=== PATIENT | male | born 1935 | race Caucasian/White ===

== ENCOUNTER → 2017-05-12 | Outpatient (CLI) | payer MEDICARE ==
[~2017-05-12] VITALS: Ht 182.9 cm; Wt 93.0 kg
[~2017-05-12] MED LIST: ALPH1TAB8 PO; ASP81TEC PO; ATEN25TA PO; BEANO PO; CALC-250 PO; CATHETER FLUSH 10 ML SYR IV PRN; DOCU100C37 PO; DOXY100C2 PO; EZET1TAB29 PO; EZET1TAB31 PO; FINA5TAB6 PO; FOSI10TA3 PO; GLIM1TAB PO; HYDR-3730 PO; IBUP-2055 PO; L.AC1CAP6 PO; LEVO500T2 PO; LEVO500T80 PO; OMEG1600 PO; OMEP20CA12 PO; OMEP20TA2 PO; REGADENOSON 0.4 MG/5 ML SYR (LEXISCAN) IV ONE; SENN-75 PO; [UNRECOGNIZED DRUG - OTHER] PO
[2017-05-12 08:08] VITALS: BP 156/88
[2017-05-12 08:18] VITALS: BP 199/65
--- NOTE | 2017-05-12 18:19 | STRESS TEST ---
DATE OF SERVICE: 05/12/2017 RESTING AND POST REGADENOSON TECHNETIUM-99M TETROFOSMIN SPECT CT IMAGING ORDERING PHYSICIAN: Dr. Zepeda. PRIMARY PHYSICIAN: Dr. Zepeda. CLINICAL DIAGNOSES: Chest pain, coronary artery disease. Baseline images were carried out after injection of 10.77 mCi of technetium-99m Tetrofosmin for stress imaging. This was followed by 0.4 mg regadenoson and 32 mCi of technetium-99m Tetrofosmin for stress imaging. The electrocardiogram showed sinus rhythm at baseline and there was subtle nonspecific ST abnormality. The electrocardiogram did not change significantly with the regadenoson infusion. The patient reported mild shortness of breath following regadenoson infusion. The electrocardiographic portion of the study is reported separately by Dr. Zepeda. Review of images at rest and following stress indicates a small transient basal inferolateral perfusion defect. Gated images show normal global systolic function with normal regional wall motion. Left ventricular ejection fraction is calculated to be 67%. Left ventricular end diastolic volume is 57 mL. TID is absent (1.1). CONCLUSIONS: 1. The study is indicative of a small amount of basal inferolateral ischemia. 2. Normal regional wall motion. 3. Normal global left ventricular systolic function with a calculated ejection fraction of 67%. 4. Normal left ventricular cavity size. Job ID: [id number] DocumentID: [id number] Dictated Date: 05/12/2017 13:03:57 Top Loader Date: 05/12/2017 18:18:17 Dictated By: PEDRO PABLO DEL ANGEL MD, MA, FACP, FACC,
== END ==
LOC: CARD 06:44
PROVIDERS: ATTEND Internal Medicine
DX: I25.10 Atherosclerotic heart disease of native coronary artery without angina pectoris (principal); R07.9 Chest pain, unspecified
CPT/HCPCS: 78452; 93017

== ENCOUNTER 2017-09-18 09:31 | Emergency (ER) | payer MEDICARE ==
[~2017-09-18] VITALS: Ht 182.9 cm; Wt 97.5 kg
[~2017-09-18 09:31] MED LIST changes: -CATHETER FLUSH 10 ML SYR IV PRN; -REGADENOSON 0.4 MG/5 ML SYR (LEXISCAN) IV ONE
--- NOTE | 2017-09-18 11:46 | Diagnostic Imaging Report ---
INDICATION: Constipation. Time of exam: 10:45 AM No free air is identified. There are surgical clips in the right upper quadrant. There does appear to be moderate stool throughout the colon suggesting constipation. There are surgical clips midline in the pelvis. Small bowel is not appreciably dilated. No pathologic calcifications are seen. IMPRESSION: Moderate stool throughout the abdomen suggestive of constipation. Dictated by: Dictated on workstation # [id number]
--- NOTE | 2017-09-18 12:00 | ED GI ---
General Chief Complaint: Abdominal/GI Problems Stated Complaint: BLOCKAGE IN COLOSTOMY Nursing Triage Note: PT AMBULATES TO ROOM 6 PT CO OF CONSTIPATION, STATES COLOSTOMY NOT WORKING, STATES IRRIGATED LAST PM X2 AND HAD ONLY GOTTEN MARBLES OUT, PT STATES NOT WORKING WELL FOR 2 DAYS. PT HAS HAD COLOSTOMY SINCE 2002, STATES THIS HAPPENED ABOUT 5 YEARS AGO Sepsis Screen: No Definite Risk Source of Information: Patient, Family Exam Limitations: No Limitations History of Present Illness Date Seen by Provider: Sep 18, 2017 Time Seen by Provider: 09:55 Initial Comments This 82-year-old gentleman presents to the emergency room with complaints that his colostomy is not working well. It seems to be "clogged". He is only had a few small hard stools from the colostomy in the last couple of days. has been irrigating it has been instructed. Patient has mild discomfort. He has taken some stool softeners but no laxatives. Patient did expel a small stool from the colostomy during my exam. Allergies and Home Medications Allergies Coded Allergies: [place] Known Allergies (Verified Allergy, Unknown, 12/19/14) Home Medications Lzxye-I-Vjoveemhivvvn 150 Unit Tablet, 300 UNIT PO DAILY, (Reported) Aspirin 81 Mg Tabec, 81 MG PO DAILY, (Reported) Atenolol 25 Mg Tablet, 25 MG PO DAILY, (Reported) Cholecalciferol 5,000 Unit Capsule, 5,000 UNIT PO DAILY, (Reported) Docusate Sodium 100 Mg Capsule, 100-200 MG PO EVERY OTHER DAY PRN for CONSTIPATION, (Reported) Ezetimibe/Simvastatin 1 Each Tablet, 1 TAB PO DAILY, (Reported) Finasteride 5 Mg Tablet, 5 MG PO DAILY, (Reported) Fosinopril Sodium 10 Mg Tablet, 10 MG PO DAILY, (Reported) Glimepiride 1 Mg Tablet, 1 MG PO DAILY, (Reported) Hydrocodone/Acetaminophen 1 Each Tablet, 1-2 EACH PO Q6H Prescribed by: RONNI BARROW on 04/21/15 1135 Ibuprofen 200 Mg Tablet, 400 MG PO DAILY, (Reported) L.acidoph & Paracasei,B.lactis 1 Each Capsule, 1 CAP PO DAILY, (Reported) Levofloxacin 500 Mg Tablet, 500 MG PO EVERY EVENING @ 1800, (Reported) FILLED 04/19/15 #7 FOR 7 DAY THERAPY [place]-3/Dha/Epa/Fish Oil 1,600 Mg/5 Ml Liquid, 1,600 MG PO DAILY, (Reported) Omeprazole 20 Mg Capsule.dr, 20 MG PO DAILY, (Reported) Patient Home Medication List Home Medication List Reviewed: Yes Review of Systems Constitutional: no symptoms reported EENTM: No Symptoms Reported Respiratory: Wheezing Cardiovascular: No Symptoms Reported Gastrointestinal: See HPI Genitourinary: No Symptoms Reported Musculoskeletal: no symptoms reported Skin: no symptoms reported Psychiatric/Neurological: No Symptoms Reported Endocrine: No Symptoms Reported Past Hnaawvy-Cphmbo-Zeetie Hx Past Med/Social Hx: Reviewed and Corrections made Patient Social History Alcohol Use: Denies Use Recreational Drug Use: No Smoking Status: Current Everyday Smoker Type Used: Pipe Recent Foreign Travel: No Contact w/Someone Who Travel: No Recent Infectious Disease Expo: No Recent Hopitalizations: No Physical Abuse: No Sexual Abuse: No Immunizations Up To Date Date of Pneumonia Vaccine: Mar 03, 2004 Date of Influenza Vaccine: Nov 15, 2014 Seasonal Allergies Seasonal Allergies: No Past Medical History Surgeries: Yes (CABG, RT TKR, COLOSTOMY) Bowel Surgery, Orthopedic Respiratory: No Currently Using CPAP: No Currently Using BIPAP: No Cardiac: Yes (CABG) Coronary Artery Disease, Hypertension Neurological: No Dementia Reproductive Disorders: No Sexually Transmitted Disease: No HIV/AIDS: No Gastrointestinal: Yes Obstructive Bowel Musculoskeletal: Yes Chronic Back Pain Endocrine: Yes Diabetes, Non-Insulin dep Loss of Vision: Denies Hearing Impairment: Hard of Hearing, Hearing Aide Right, Hearing Aide Left Cancer: Yes Colon Psychosocial: No Nursing Suicide Risk Score: 0 Integumentary: Yes (ULCER LOWER EXT) Blood Disorders: No Family Medical History Alcoholism (son) Completed stroke (mother) Diabetes mellitus (aunt) Hypertension (mother) No Pertinent Family Hx Physical Exam Vital Signs Vital Signs - First Documented 09/18/17 09:45 Temp 97.5 Pulse 60 Resp 18 B/P (MAP) 183/83 (116) Pulse Ox 95 Capillary Refill : Less Than 3 Seconds Height/Weight/BMI Height: 6'0" Weight: 215lbs. 0.0oz. 97.477676ob; 27.8 BMI Method:Stated General Appearance: WD/WN, no apparent distress HEENT: normal ENT inspection Respiratory: no respiratory distress, no accessory muscle use, wheezing Cardiovascular: regular rate, rhythm, no edema, no murmur Gastrointestinal: normal bowel sounds, soft, distended (Mild distention near the colostomy), tenderness (Minimal) Extremities: normal inspection, no pedal edema Neurologic/Psychiatric: tire vulcanizer II-XII nml as tested, no motor/sensory deficits, alert, normal mood/affect, oriented x 3 Skin: normal color, warm/dry Progress/Results/Core Measures Results/Orders My Orders Orders - BRIAN POMPA MD Abdomen, Flat & Upright/Decub (09/18/17 10:10) Vital Signs/I&O 09/18/17 09/18/17 09:45 12:15 Temp 97.5 97.5 Pulse 60 60 Resp 18 18 B/P (MAP) 183/83 (116) 183/83 (116) Pulse Ox 95 95 Blood Pressure Mean: 116 Progress Progress Note : Progress Note Patient did expel some stool in the colostomy bag during the ER visit. KUB and upright showed probable constipation but no free air, air-fluid levels, or evidence of obstruction. Diagnostic Imaging Diagonstic Imaging: Xray Plain Films/CT/US/NM/MRI: abdomen, pelvis Comments KUB and upright abdominal films viewed by me and report reviewed. See report below: NAME: GORDY GRIFFITHS [facility] REC#: [id number] PT STATUS: REG ER : 1935 PHYSICIAN: BRIAN POMPA MD ADMIT DATE: 09/18/17/ER Draft Date of Exam:09/18/17 ABDOMEN, FLAT & UPRIGHT/DECUB INDICATION: Constipation. Time of exam: 10:45 AM No free air is identified. There are surgical clips in the right upper quadrant. There does appear to be moderate stool throughout the colon suggesting constipation. There are surgical clips midline in the pelvis. Small bowel is not appreciably dilated. No pathologic calcifications are seen. IMPRESSION: Moderate stool throughout the abdomen suggestive of constipation. Dictated on workstation # [id number] Dict: 09/18/17 1138 Trans: 09/18/17 1146 [id number] Interpreted by: IVANNA DE MD Departure Impression Primary Impression: Constipation Qualified Codes: K59.00 - Constipation, unspecified Disposition: 01 HOME, SELF-CARE Condition: Stable Departure-Patient Inst. Decision time for Depature: 12:06 Referrals: BIN LEY DO (PCP/Family) Primary Care Physician Patient Instructions: Constipation, Adult (DC) Add. Discharge Instructions: Drink plenty of clear liquids. Eat plenty of fruits, vegetables, and whole grains. Avoid excessive meats, cheeses, and processed foods as they may worsen constipation. Use MiraLAX (polyethylene glycol) once or twice daily until stools become regular again. Fill the cap to the line and dissolve the powder in 8-12 ounces of a liquid beverage. Return to care if symptoms worsen or are not improving. All discharge instructions reviewed with patient and/or family. Voiced understanding. BRIAN POMPA MD Sep 18, 2017 12:00
[2017-09-18 12:15] VITALS: BP 183/83
== END 2017-09-18 12:15 | disposition home or self-care (01) ==
LOC: EDUNIT# 09:31 → ER 09:32
DX: K59.00 Constipation, unspecified (principal); I25.10 Atherosclerotic heart disease of native coronary artery without angina pectoris; I10 Essential (primary) hypertension; E11.9 Type 2 diabetes mellitus without complications; F03.90 Unspecified dementia, unspecified severity, without behavioral disturbance, psychotic disturbance, mood disturbance, and anxiety; F17.290 Nicotine dependence, other tobacco product, uncomplicated; Z87.19 Personal history of other diseases of the digestive system; Z80.3 Family history of malignant neoplasm of breast; Z79.82 Long term (current) use of aspirin; Z79.84 Long term (current) use of oral hypoglycemic drugs; Z95.1 Presence of aortocoronary bypass graft; Z96.651 Presence of right artificial knee joint
CPT/HCPCS: 74019

== ENCOUNTER 2018-05-21 09:58 | Outpatient (RCR) | payer MEDICARE | END 2018-08-19 | disposition home or self-care (01) | LOC: CARD 09:58 | PROVIDERS: ATTEND Internal Medicine | DX: R00.2 Palpitations (principal) | CPT/HCPCS: 93225; 93226 ==

== ENCOUNTER 2018-10-22 08:45 | Outpatient (RCR) | payer MEDICARE ==
[~2018-10-22 08:45] MED LIST changes: -OMEP20CA12 PO; +OMEP20CA13 PO
== END 2018-11-03 13:52 | disposition home or self-care (01) ==
PROVIDERS: ATTEND Internal Medicine
DX: R26.2 Difficulty in walking, not elsewhere classified (principal); H91.90 Unspecified hearing loss, unspecified ear

== ENCOUNTER → 2018-11-25 | Outpatient (CLI) | payer MEDICARE ==
--- NOTE | 2018-11-25 13:23 | Diagnostic Imaging Report ---
PROCEDURE: US Bilateral lower extremity arterial. TECHNIQUE: Multiple real-time grayscale images are obtained through both lower extremity arterial systems with color Doppler imaging and color Doppler spectral analysis. INDICATION: Peripheral vascular insufficiency, bilateral lower extremities. FINDINGS: Minimal plaquing is seen within bilateral lower extremity arterial systems. There are predominantly biphasic and triphasic waveforms throughout both lower extremity arterial systems. Velocities are fairly symmetric bilaterally. No high-grade stenosis or occlusion is identified. No mass or fluid collection is seen. IMPRESSION: Essentially unremarkable bilateral lower extremity arterial Doppler. Dictated by: Dictated on workstation # [id number]
== END ==
LOC: RAD 12:06
PROVIDERS: ATTEND Internal Medicine
DX: I73.9 Peripheral vascular disease, unspecified (principal)
CPT/HCPCS: 93925

== ENCOUNTER → 2018-12-16 | Outpatient (CLI) | payer MEDICARE ==
--- NOTE | 2018-12-16 12:48 | Diagnostic Imaging Report ---
PROCEDURE: US carotid duplex, bilateral. INDICATION: Transient ischemic attack. History of coronary artery disease, post cardiac bypass. History dementia and syncope. History of diabetes and hypertension. Tobacco use. TECHNIQUE: Multiple real-time images with color Doppler imaging were performed. Doppler velocity and waveform data were obtained. The cervical carotid and vertebral arteries were evaluated. CORRELATION STUDY: 04/14/2013 FINDINGS: Color images demonstrate mild scattered plaque formation. This is most pronounced at the level of the carotid bifurcations. Right Carotid System: Right Common Carotid Artery: Patent. There is no abnormally elevated velocity to suggest a hemodynamically significant stenosis. Right Internal Carotid Artery: Patent. There is no abnormally elevated velocity to suggest a hemodynamically significant stenosis. Right External Carotid Artery: Patent. Left Carotid System: Left Common Carotid Artery: Patent. There is no abnormally elevated velocity to suggest a hemodynamically significant stenosis. Left Internal Carotid Artery: Patent. There is no abnormally elevated velocity to suggest a hemodynamically significant stenosis. Left External Carotid Artery: Patent. Vertebral arteries: Patent and with antegrade direction of flow. Parameters based on the consensus panel Carranza-Scale and Doppler ultrasound criteria published January 2003, Radiology, Volume 229. DOPPLER (peak systolic velocity M/S Right Left CCA 0.66 0.73 ICA Proximal 0.66 0.58 ICA Mid 0.68 0.79 ICA Distal 0.60 0.60 RATIO 1.03 1.07 ECA 1.23 1.26 VERT 0.44 0.44 IMPRESSION: 1. Carotid Doppler imaging demonstrates no findings to suggest a hemodynamically significant stenosis of the internal carotid arteries at this time. Dictated by: Dictated on workstation # [id number]
== END ==
LOC: RAD 10:39
PROVIDERS: ATTEND Internal Medicine
DX: G45.9 Transient cerebral ischemic attack, unspecified (principal)
CPT/HCPCS: 93880

== ENCOUNTER → 2020-09-05 | Outpatient (CLI) | payer MEDICARE ==
[~2020-09-05] MED LIST changes: +FOSI10TA6 PO; +GLIM1TAB4 PO; -IBUP-2055 PO; +IBUP-2473 PO; -OMEP20CA13 PO; +OMEP20CA18 PO
--- NOTE | 2020-09-05 12:49 | Diagnostic Imaging Report ---
PA and lateral chest at 1232 hours. INDICATION: Cough. FINDINGS: As on the prior exam of 04/02/2014, there is shallow inspiration. The heart is stable in size. The sternal wires and surgical clips noted previously are again evident and no different. The lungs are generally clear. There is no evidence of failure, pneumonia or for pleural effusion. The mediastinum is not widened. The osseous structures are intact. IMPRESSION: There is evidence of prior cardiac surgery, but there is no sign of an acute cardiopulmonary abnormality. Dictated by: Dictated on workstation # [id number]
== END ==
LOC: RAD 11:55
PROVIDERS: ATTEND Internal Medicine
DX: R05 Cough (principal)
CPT/HCPCS: 71046

== ENCOUNTER 2020-09-10 11:00 | Inpatient (IN) | payer MEDICARE ==
[~2020-09-10] VITALS: Ht 182 cm; Wt 91.0 kg
--- NOTE | 2020-09-10 11:35 | ED General ---
General Stated Complaint: WEAKNESS/SOB/COUGH Source of Information: Patient Exam Limitations: Physical Impairments (Very hard of hearing) History of Present Illness Date Seen by Provider: Sep 10, 2020 Time Seen by Provider: 11:06 Initial Comments Here with report of cough, short of breath and congested for the last 3 days. Also is weak. Apparently he has had both vaccines for COVID-19. He has had bronchitis over the last 2 weeks per family member. No report of fever. Patient states that he urinates all the time and does smell of foul-smelling urine. He does wear briefs. He also has colostomy left lower quadrant. Patient is very weak on transfer to the bed. History limited by his difficulty with hearing. Does report runny nose but denies sore throat. Timing/Duration: 2-3 Days, Getting Worse, Other (Intermittent over the last 2- week) Severity: Moderate Associated Systoms: No Chest Pain; Cough; No Fever/Chills, No Malaise, No Nausea/Vomiting; Shortness of Air, Weakness Allergies and Home Medications Allergies Coded Allergies: NKANo Known Allergies (Verified Allergy, Unknown, 12/19/14) Home Medications Aafgu-K-Kzhrupoguvczt 150 Unit Tablet, 300 UNIT PO DAILY, (Reported) Aspirin 81 Mg Tabec, 81 MG PO DAILY, (Reported) Atenolol 25 Mg Tablet, 25 MG PO DAILY, (Reported) Cholecalciferol 5,000 Unit Capsule, 5,000 UNIT PO DAILY, (Reported) Docusate Sodium 100 Mg Capsule, 100-200 MG PO EVERY OTHER DAY PRN for CONSTIPATION, (Reported) Ezetimibe/Simvastatin 1 Each Tablet, 1 TAB PO DAILY, (Reported) Finasteride 5 Mg Tablet, 5 MG PO DAILY, (Reported) Fosinopril Sodium 10 Mg Tablet, 10 MG PO DAILY, (Reported) Glimepiride 1 Mg Tablet, 1 MG PO DAILY, (Reported) Hydrocodone/Acetaminophen 1 Each Tablet, 1-2 EACH PO Q6H Prescribed by: RONNI BARROW on 04/21/15 1135 Ibuprofen 200 Mg Tablet, 400 MG PO DAILY, (Reported) L.acidoph & Paracasei,B.lactis 1 Each Capsule, 1 CAP PO DAILY, (Reported) Levofloxacin 500 Mg Tablet, 500 MG PO EVERY EVENING @ 1800, (Reported) FILLED 02/17/16 #7 FOR 7 DAY THERAPY [place]-3/Dha/Epa/Fish Oil 1,600 Mg/5 Ml Liquid, 1,600 MG PO DAILY, (Reported) Omeprazole 20 Mg Capsule.dr, 20 MG PO DAILY, (Reported) Patient Home Medication List Home Medication List Reviewed: Yes Review of Systems Review of Systems Constitutional: see HPI; No chills, No fever EENTM: nose congestion; No throat pain Respiratory: cough, short of breath, wheezing Cardiovascular: No chest pain; edema Gastrointestinal: No abdominal pain, No nausea, No vomiting Genitourinary: see HPI Musculoskeletal: No muscle pain; muscle weakness All Other Systems Reviewed Negative Unless Noted: Yes Past Klqxdkf-Fjyexs-Zhkixb Hx Patient Social History Tobacco Use?: Yes Tobacco type used: Cigarettes Smoking Status: Current Everyday Smoker Substance use?: No Alcohol Use?: No Seasonal Allergies Seasonal Allergies: No Past Medical History Surgeries: Yes (CABG, RT TKR, COLOSTOMY) Bowel Surgery, Orthopedic Respiratory: No Currently Using CPAP: No Currently Using BIPAP: No Cardiac: Yes (CABG) Coronary Artery Disease, Hypertension Neurological: No Dementia Reproductive Disorders: No Sexually Transmitted Disease: No HIV/AIDS: No Gastrointestinal: Yes Obstructive Bowel Musculoskeletal: Yes Chronic Back Pain Endocrine: Yes Diabetes, Non-Insulin dep Loss of Vision: Denies Hearing Impairment: Hard of Hearing, Hearing Aide Right, Hearing Aide Left Cancer: Yes Colon Psychosocial: No Integumentary: Yes (ULCER LOWER EXT) Blood Disorders: No Family Medical History Reviewed Nursing Family Hx Alcoholism (son) Completed stroke (mother) Diabetes mellitus (aunt) Hypertension (mother) No Pertinent Family Hx Physical Exam-Suspected Sepsis Physical Exam Vital Signs Vital Signs - First Documented 09/10/20 11:05 Temp 35.4 Pulse 66 Resp 18 B/P (MAP) 154/95 (114) Pulse Ox 96 Capillary Refill : Height, Weight, BMI Height: 6'0" Weight: 215lbs. 0.0oz. 97.635208gr; 27.8 BMI Method:Stated General Appearance: WD/WN, Mild Distress (Cough and weak) HEENT: PERRL/EOMI; No Pharyngeal Erythema; Other (Nasal congestion) Neck: Normal Inspection, Non Tender, Supple Respiratory: Decreased Breath Sounds, Expiration, Wheezing, Other (Coughing with wheezes associated with cough.) Cardiovascular: Regular Rate, Rhythm, No Murmur Gastrointestinal: Non Tender, Soft Back: Normal Inspection, No CVA Tenderness Extremity: Normal Range of Motion, Non Tender Neurologic/Psychiatric: Alert, Oriented x3, Other (Very hard of hearing) Skin: normal color, warm/dry Focused Exam Lactate Level 09/10/20 11:25: Lactic Acid Level 0.99 Lactic Acid Level Laboratory Tests Test 09/10/20 11:25 Lactic Acid Level 0.99 MMOL/L (0.50-2.00) Progress/Results/Core Measures Suspected Sepsis SIRS Temperature: Pulse: Respiratory Rate: Laboratory Tests 09/10/20 11:25: White Blood Count 8.4 Blood Pressure / Mean: 09/10/20 11:25: Lactic Acid Level 0.99 Laboratory Tests 09/10/20 11:25: Creatinine 1.12, INR Comment 1.1, Platelet Count 186, Total Bilirubin 0.4 Results/Orders Lab Results Laboratory Tests Test 09/10/20 11:07 09/10/20 11:25 09/10/20 11:35 Range/Units Influenza Type A (RT-PCR) Not Detected Not Detecte Influenza Type B (RT-PCR) Not Detected Not Detecte SARS-CoV-2 RNA (RT-PCR) Detected H Not Detecte White Blood Count 8.4 4.3-11.0 10^3/uL Red Blood Count 3.58 L 4.30-5.52 10^6/uL Hemoglobin 11.1 L 13.3-17.7 g/dL Hematocrit 35 L 40-54 % Mean Corpuscular Volume 97 80-99 fL Mean Corpuscular Hemoglobin 31 25-34 pg Mean Corpuscular Hemoglobin Concent 32 32-36 g/dL Red Cell Distribution Width 13.9 10.0-14.5 % Platelet Count 186 130-400 10^3/uL Mean Platelet Volume 9.9 9.0-12.2 fL Immature Granulocyte % (Auto) 1 % Neutrophils (%) (Auto) 73 42-75 % Lymphocytes (%) (Auto) 16 12-44 % Monocytes (%) (Auto) 8 0-12 % Eosinophils (%) (Auto) 2 0-10 % Basophils (%) (Auto) 0 0-10 % Neutrophils # (Auto) 6.1 1.8-7.8 10^3/uL Lymphocytes # (Auto) 1.4 1.0-4.0 10^3/uL Monocytes # (Auto) 0.7 0.0-1.0 10^3/uL Eosinophils # (Auto) 0.2 0.0-0.3 10^3/uL Basophils # (Auto) 0.0 0.0-0.1 10^3/uL Immature Granulocyte # (Auto) 0.1 0.0-0.1 10^3/uL Prothrombin Time 15.1 H 12.2-14.7 SEC INR Comment 1.1 0.8-1.4 Activated Partial Thromboplast Time 48 H 24-35 SEC D-Dimer 1.22 H 0.00-0.49 UG/ML Sodium Level 140 135-145 MMOL/L Potassium Level 4.7 3.6-5.0 MMOL/L Chloride Level 108 H 98-107 MMOL/L Carbon Dioxide Level 22 21-32 MMOL/L Anion Gap 10 5-14 MMOL/L Blood Urea Nitrogen 31 H 7-18 MG/DL Creatinine 1.12 0.60-1.30 MG/DL Estimat Glomerular Filtration Rate > 60 BUN/Creatinine Ratio 28 Glucose Level 101 70-105 MG/DL Lactic Acid Level 0.99 0.50-2.00 MMOL/L Calcium Level 8.9 8.5-10.1 MG/DL Corrected Calcium 9.7 8.5-10.1 MG/DL Total Bilirubin 0.4 0.1-1.0 MG/DL Aspartate Amino Transf (AST/SGOT) 58 H 5-34 U/L Alanine Aminotransferase (ALT/SGPT) 60 H 0-55 U/L Alkaline Phosphatase 66 40-136 U/L Troponin I 0.030 H <0.028 NG/ML C-Reactive Protein High Sensitivity 28.34 H 0.00-0.50 MG/DL B-Type Natriuretic Peptide 166.9 H <100.0 PG/ML Total Protein 6.0 L 6.4-8.2 GM/DL Albumin 3.0 L 3.2-4.5 GM/DL Procalcitonin 0.17 H <0.10 NG/ML Urine Color YELLOW Urine Clarity CLEAR Urine pH 5.5 5-9 Urine Specific [place] 1.015 L 1.016-1.022 Urine Protein TRACE H NEGATIVE Urine Glucose (UA) NEGATIVE NEGATIVE Urine Ketones NEGATIVE NEGATIVE Urine Nitrite NEGATIVE NEGATIVE Urine Bilirubin NEGATIVE NEGATIVE Urine Urobilinogen 0.2 < = 1.0 MG/DL Urine Leukocyte Esterase NEGATIVE NEGATIVE Urine RBC (Auto) 1+ H NEGATIVE Urine RBC 0-2 /HPF Urine WBC RARE /HPF Urine Crystals NONE /LPF Urine Bacteria TRACE /HPF Urine Casts NONE /LPF Urine Mucus NEGATIVE /LPF Urine Culture Indicated CULTURE PENDING My Orders Orders - MYCHAL JENNINGS MD Cbc With Automated Diff (09/10/20 11:) Comprehensive Metabolic Panel (09/10/20:) Blood Culture (09/10/20:) Sputum Culture (09/10/20:) Urinalysis (09/10/20:) Urine Culture (09/10/20:) Protime With Inr (09/10/20) Partial Thromboplastin Time (09/10/20:) Chest 1 View, Ap/Pa Only (09/10/20:) Ed Iv/Invasive Line Start (09/10/20:) Ekg Tracing (09/10/20:) Troponin I (09/10/20:) Vital Signs Adult Sepsis Patie Q15M (09/10/20 11:22) O2 (09/10/20 11:) Remove Rings In Anticipation O (09/10/20:) Lactic Acid Analyzer (09/10/20:) Fibrin Degradation Products (09/10/20 11:) Procalcitonin (Pct) (09/10/20 11:22) Hs C Reactive Protein (09/10/20 11:) Covid 19 Inhouse Test (09/10/20:) BNP (09/10/20 11:22) Influenza A And B By Pcr (09/10/20 11:22) Pelvis With Right Hip 2-3views (09/10/20 11:56) Dexamethasone Tablet (Decadron Tablet) (09/10/20 12:35) Vital Signs/I&O 09/10/20 11:05 Temp 35.4 Pulse 66 Resp 18 B/P (MAP) 154/95 (114) Pulse Ox 96 Capillary Refill : Progress Note : Progress Note Seen and evaluated. Sepsis protocol initiated. COVID-19 testing ordered. We will get EKG, troponin and BNP as well. Monitor patient. 1157: Ronquillo catheter placed due to weakness. Nursing noted large bruise on the right side. He is able to stand and transfer although is very weak. We will go ahead and get x- ray of the right hip and pelvis. 1233: Patient is positive for Covid 19. He is quite weak and family unable to help him at home. He has already fallen once this week. I did discuss the case with Dr. Lopez and he accepts patient for admission, inpatient status. We will initiate Decadron 6 mg p.o. now and initiate COVID-19 order set. I did discuss all findings and concerns with his . She is currently at the clinic and getting tested for COVID-19. She is also fully vaccinated. Patient is DNR status. This was ordered as well. Not currently hypoxic. Family agrees to plan. ECG Initial ECG Impression Date: Sep 10, 2020 Initial ECG Impression Time: 11:22 Initial ECG Rate: 59 Initial ECG Rhythm: Normal Sinus Comment Sinus rhythm with left axis deviation. No evidence of ST elevation [place]. Change from previous with slightly different QRS complexes in the inferior leads from previous of 04/21/2015. Interpreted by me. Diagnostic Imaging Diagonstic Imaging: Xray Plain Films/CT/US/NM/MRI: chest Comments [facility]. [place], [place] NAME: GORDY GRIFFITHS [facility] REC#: [id number] PT STATUS: REG ER : 1935 PHYSICIAN: MYCHAL JENNINGS MD ADMIT DATE: 09/10/20/ER Draft Date of Exam:09/10/20 CHEST 1 VIEW, AP/PA ONLY INDICATION: sepsis. TECHNIQUE: Single view chest 12:01 PM. CORRELATION STUDY: 04/02/2014 FINDINGS: Poststernotomy changes. Cardiac enlargement has developed. Vasculature is increased as well. Mildly prominent interstitial markings. No definitive infiltrate. IMPRESSION: 1. Cardiac enlargement with mild increased vascularity. Both features are change from prior to suggest perhaps minimal fluid overload or early failure. Dictated on workstation # [id number] Dict: 09/10/20 1219 Trans: 09/10/20 1223 CVB [id number] Interpreted by: SIVA ARRIAGA DO Electronically signed by: Reviewed: Reviewed by Me Diagonstic Imaging: Xray Plain Films/CT/US/NM/MRI: pelvis, hip Comments [facility] [place] NAME: GORDY GRIFFITHS [facility] REC#: [id number] PT STATUS: REG ER : 1935 PHYSICIAN: MYCHAL JENNINGS MD ADMIT DATE: 09/10/20/ER Draft Date of Exam:09/10/20 PELVIS WITH RIGHT HIP 2-3VIEWS INDICATION: pelvic hip pain TECHNIQUE: AP pelvis along with 2 views right hip, 12:05 PM CORRELATION STUDY: None FINDINGS: Multiple clips within the pelvis. The pelvis is intact. The pectineal lines and obturator rings maintained. SI joints and pubic symphysis are preserved. Lucency through the intertrochanteric region of the left proximal femur likely of no significance. Right hip is intact with femoral head acetabular relationships are preserved. Bony trabecular pattern is intact. Additional clips in the left inguinal region. IMPRESSION: Negative examination of the pelvis and right hip. Dictated on workstation # [id number] Dict: 09/10/20 1219 Trans: 09/10/20 1225 [facility] [id number] Interpreted by: SIVA ARRIAGA DO Electronically signed by: Reviewed: Reviewed by Me Departure Communication (Admissions) Time/Spoke to Admitting Phy: 12:33 Impression Primary Impression: COVID-19 virus infection Additional Impression: Weakness Disposition: ADMITTED INPATIENT Condition: Stable Admissions Decision to Admit Reason: Admit from ER (General) Decision to Admit/Date: Sep 10, 2020 Time/Decision to Admit Time: 12:33 Departure-Patient Inst. Referrals: BIN LEY DO (PCP/Family) Primary Care Physician MYCHAL JENNINGS MD Sep 10, 2020 11:35
[2020-09-10 11:41] LABS: BASOPHILS % (AUTO) 0 % (0-10); EOSINOPHILS # (AUTO) 0.2 10^3/uL (0.0-0.3); EOSINOPHILS % (AUTO) 2 % (0-10); HEMATOCRIT 35 % (40-54); HEMOGLOBIN 11.1 g/dL (13.3-17.7); LYMPHOCYTES # (AUTO) 1.4 10^3/uL (1.0-4.0); LYMPHOCYTES % (AUTO) 16 % (12-44); MEAN CORPUSCULAR HEMOGLOBIN 31 pg (25-34); MEAN CORPUSCULAR HGB CONC 32 g/dL (32-36); MEAN CORPUSCULAR VOLUME 97 fL (80-99); MEAN PLATELET VOLUME 9.9 fL (9.0-12.2); MONOCYTES # (AUTO) 0.7 10^3/uL (0.0-1.0); MONOCYTES % (AUTO) 8 % (0-12); NEUTROPHILS # (AUTO) 6.1 10^3/uL (1.8-7.8); NEUTROPHILS % (AUTO) 73 % (42-75); PLATELET COUNT 186 10^3/uL (130-400); WHITE BLOOD COUNT 8.4 10^3/uL (4.3-11.0)
[2020-09-10 11:49] LABS: BILIRUBIN,URINE NEGATIVE (NEGATIVE); CLARITY,URINE CLEAR; COLOR,URINE YELLOW; GLUCOSE, URINE (UA) NEGATIVE (NEGATIVE); KETONES,URINE NEGATIVE (NEGATIVE); LEUKOCYTE ESTERASE ,URINE NEGATIVE (NEGATIVE); NITRITE,URINE NEGATIVE (NEGATIVE); PH,URINE 5.5 (5-9); PROTEIN,URINE TRACE (NEGATIVE)
[2020-09-10 11:53] LABS: CHLORIDE 108 MMOL/L (98-107); POTASSIUM 4.7 MMOL/L (3.6-5.0); SODIUM 140 MMOL/L (135-145)
[2020-09-10 11:54] LABS: CALCIUM 8.9 MG/DL (8.5-10.1); FIBRIN DEGRADATION PRODUCTS 1.22 UG/ML (0.00-0.49); INR 1.1 (0.8-1.4); PROTHROMBIN TIME PATIENT 15.1 SEC (12.2-14.7)
[2020-09-10 11:55] LABS: GLUCOSE 101 MG/DL (70-105)
[2020-09-10 11:57] LABS: BILIRUBIN,TOTAL 0.4 MG/DL (0.1-1.0); CARBON DIOXIDE 22 MMOL/L (21-32)
[2020-09-10 11:58] LABS: BACTERIA,URINE TRACE /HPF; RBC,URINE 0-2 /HPF; WBC,URINE RARE /HPF
[2020-09-10 11:59] LABS: ALKALINE PHOSPHATASE 66 U/L (40-136); CREATININE SERUM 1.12 MG/DL (0.60-1.30); GFR ESTIMATED > 60
[2020-09-10 12:00] LABS: BUN/CREATININE RATIO 28
[2020-09-10 12:02] LABS: ALANINE AMINOTRANSFERASE 60 U/L (0-55)
--- NOTE | 2020-09-10 12:24 | Diagnostic Imaging Report ---
INDICATION: sepsis. TECHNIQUE: Single view chest 12:01 PM. CORRELATION STUDY: 04/02/2014 FINDINGS: Poststernotomy changes. Cardiac enlargement has developed. Vasculature is increased as well. Mildly prominent interstitial markings. No definitive infiltrate. IMPRESSION: 1. Cardiac enlargement with mild increased vascularity. Both features are change from prior to suggest perhaps minimal fluid overload or early failure. Dictated by: Dictated on workstation # [id number]
--- NOTE | 2020-09-10 12:26 | Diagnostic Imaging Report ---
INDICATION: pelvic hip pain TECHNIQUE: AP pelvis along with 2 views right hip, 12:05 PM CORRELATION STUDY: None FINDINGS: Multiple clips within the pelvis. The pelvis is intact. The pectineal lines and obturator rings maintained. SI joints and pubic symphysis are preserved. Lucency through the intertrochanteric region of the left proximal femur likely of no significance. Right hip is intact with femoral head acetabular relationships are preserved. Bony trabecular pattern is intact. Additional clips in the left inguinal region. IMPRESSION: Negative examination of the pelvis and right hip. Dictated by: Dictated on workstation # [id number]
[2020-09-10] MEDS ORDERED: dexAMETHasone 6 MG TAB (DECADRON) PO STA (12:35)
[2020-09-10 13:30] VITALS: BP 193/85
[2020-09-10] MEDS ORDERED: ACETAMINOPHEN 650 MG SUPP (TYLENOL) PR PRN (13:45)
[2020-09-10] MEDS ORDERED: LORazepam INJ 2 MG/ML (ATIVAN) VIAL IV PRN (13:45)
[2020-09-10] MEDS ORDERED: ACETAMINOPHEN 325 MG TABLET PO PRN (13:45)
[2020-09-10] MEDS ORDERED: ONDANSETRON 4 MG/2 ML (SDV) Z0FRAN IV PRN (13:45)
[2020-09-10] MEDS ORDERED: ONDANSETRON 4 MG (ZOFRAN) ORAL DISSOLVE TAB PO PRN (13:45)
--- NOTE | 2020-09-10 13:53 | Tele-ICU Consult ---
History of Present Illness History of Present Illness Date Seen by Provider: Sep 10, 2020 Time Seen by Provider: 13:38 Date of Admission Patient acknowledged in this virtual visit which was conducted using real time audio/video. Thank you for asking us to see this patient for respiratory insufficiency and distress. HPC: Recent events: Cough and dysp x 3 days. treated for ac bronchitis x 2 wks. Covid positive and was vaccinated. PMH: CABG HL DM colostomy SH: smoking history: current smoker. . getting Covid testing. FH: Non-contributory, DM, CAD ROS: limited by patient's clinical condition, but no sx other than in PC PE: VSS HR 81 NSR BP 155/95 RR 20 94% O2 sat on RA HEENT: No obvious masses, adenopathy or JVD. Chest: decreased BS. wheezes present. CV: RRR S1 S2 No murmur or added sounds. Abd: Non-tender. Bowel sounds present. LLQ colostomy : Unremarkable. Ronquillo placed in ER [employer]/psychiatric: Alert and oriented, grossly intact. No obvious focal findings. Extremities: No edema. Skin: unremarkable, pale. Results: Unremarkabe. CXR: no infilt., increased vascularity A/P: Available chart/ vitals / labs / Images reviewed Video assessment done using teleICU camera, rest of exam as per RN Respiratory: Continue present management with Decadron, monitoring for increased O2 needs. Critical Care: critically ill patient Covid positive, multiple comorbidities.. will discuss with bedside RN when she leaves room.. Will ask RN to reach out to eICU if any questions or concerns later. Time spent with patient/coordination of care with other health professionals (mins): 20 Reason for Visit: see free text History of Present Illness See free text. Allergies and Home Medications Allergies Coded Allergies: NKANo Known Allergies (Verified Allergy, Unknown, 12/19/14) Home Medications Dyjog-M-Jfuhfzcvcezpr 150 Unit Tablet, 300 UNIT PO DAILY, (Reported) Aspirin 81 Mg Tabec, 81 MG PO DAILY, (Reported) Atenolol 25 Mg Tablet, 25 MG PO DAILY, (Reported) Cholecalciferol 5,000 Unit Capsule, 5,000 UNIT PO DAILY, (Reported) Docusate Sodium 100 Mg Capsule, 100-200 MG PO EVERY OTHER DAY PRN for CONSTIPATION, (Reported) Ezetimibe/Simvastatin 1 Each Tablet, 1 TAB PO DAILY, (Reported) Finasteride 5 Mg Tablet, 5 MG PO DAILY, (Reported) Fosinopril Sodium 10 Mg Tablet, 10 MG PO DAILY, (Reported) Glimepiride 1 Mg Tablet, 1 MG PO DAILY, (Reported) Hydrocodone/Acetaminophen 1 Each Tablet, 1-2 EACH PO Q6H Prescribed by: RONNI BARROW on 04/21/15 1135 Ibuprofen 200 Mg Tablet, 400 MG PO DAILY, (Reported) L.acidoph & Paracasei,B.lactis 1 Each Capsule, 1 CAP PO DAILY, (Reported) Levofloxacin 500 Mg Tablet, 500 MG PO EVERY EVENING @ 1800, (Reported) FILLED 04/19/15 #7 FOR 7 DAY THERAPY [place]-3/Dha/Epa/Fish Oil 1,600 Mg/5 Ml Liquid, 1,600 MG PO DAILY, (Reported) Omeprazole 20 Mg Capsule.dr, 20 MG PO DAILY, (Reported) Past Medical/Social/Family Hx Patient Social History Marrital Status: (See free text.) Tobacco Use?: No Tobacco type used: Cigarettes Smoking Status: Current Everyday Smoker Use of E-Cig and/or Vaping dev: No Substance use?: No Alcohol Use?: No Immunizations Up To Date Second COVID19 Vaccination [place]: STATES HAS HAD BOTH VACCINES Date of Pneumonia Vaccine: Mar 03, 2004 Current Status Advance Directives: No Primary Language: [place] Citizen Preferred Spoken Language: [place] Sensory deficits: Vision impairment Review of Systems Constitutional: no symptoms reported EENTM: see HPI Respiratory: no symptoms reported Cardiovascular: no symptoms reported Gastrointestinal: no symptoms reported Musculoskeletal: no symptoms reported Psychiatric/Neurological: No Symptoms Reported All Other Systems Reviewed Negative Unless Noted: Yes Sepsis Event Evaluation Sepsis Stage: Ruled Out Height, Weight, BMI Height: 6'0" Weight: 215lbs. 0.0oz. 97.773270sx; 27.00 BMI Method:Stated Bedside Monitoring Date besdie monitoring occurre: Sep 10, 2020 Time bedside monitoring occure: 14:00 Bedside Ultrasound Performed: No Passive Leg Raise/Fluid Bolus: Not Fluid Responsive, Not Performed Exam Exam Patient acknowledged, consented, and participated in this virtual visit which was conducted using real time audio/video Vital Signs Date Time Temp Pulse Resp B/P (MAP) Pulse Ox O2 Delivery O2 Flow Rate FiO2 09/10/20 11:05 35.4 66 18 154/95 (621) 96 Height & Weight Height: 6'0" Weight: 215lbs. 0.0oz. 97.933379xx; 27.00 BMI Method:Stated General Appearance: WD/WN, Mild Distress (Cough and weak) HEENT: PERRL/EOMI; No Pharyngeal Erythema; Other (Nasal congestion) Neck: Normal Inspection, Non Tender, Supple Respiratory: Decreased Breath Sounds, Expiration, Wheezing, Other (Coughing with wheezes associated with cough.) Cardiovascular: Regular Rate, Rhythm, No Murmur Capillary Refill: Less Than 3 Seconds Extremity: Normal Range of Motion, Non Tender Neurologic/Psychiatric: Alert, Oriented x3, Other (Very hard of hearing) Results Lab Laboratory Tests 09/10/20 11:25 Radiology See free text. Procedures See free text. Assessment/Plan Assessment/Plan See free text. Critical Care: Critically Ill Patient Time spent on discussion(mins): 0 Diagnosis/Problems Problems/Diagonsis (1) Bronchitis Status: Acute (2) COVID-19 virus infection Status: Acute SERGO TERESA MD Sep 10, 2020 13:53
[2020-09-10] MEDS ORDERED: CLOP75TA28 PO (14:38)
[2020-09-10] MEDS ORDERED: ATOR20TA66 PO (14:38)
[2020-09-10] MEDS ORDERED: ISOS60TA63 PO (14:38)
[2020-09-10] MEDS ORDERED: FOSI40TA5 PO (14:38)
[2020-09-10] MEDS ORDERED: NITR0.4T42 PO (14:38)
[2020-09-10] MEDS ORDERED: LORA-404 PO (14:38)
[2020-09-10] MEDS ORDERED: ACET500P24 PO (14:38)
[2020-09-10] MEDS ORDERED: FINA5TAB PO (14:41)
[2020-09-10 15:03] VITALS: BP 193/85
[2020-09-10] MEDS ORDERED: RT-ALBUTEROL INHALER HFA (VENTOLIN HFA) 18 GM IH PRN (15:15)
[2020-09-10] MEDS: LORazepam 0.5 MG (ATIVAN) TABLET PO SCH ×2 (15:23→19:37)
[2020-09-10 16:00] VITALS: BP 213/98
[2020-09-10] MEDS ORDERED: hydrALAZINE (APESOLINE) 20 MG/ML VIAL ONE (16:25)
[2020-09-10] MEDS: hydrALAZINE (APESOLINE) 20 MG/ML VIAL IV PRN ×2 (16:32→23:06)
[2020-09-10] MEDS: ENOXAPARIN 40 MG/0.4 ML (LOVENOX) SYR SC SCH (16:33)
[2020-09-10 19:36] VITALS: BP 181/96
[2020-09-10] MEDS ORDERED: hydrALAZINE (APESOLINE) 20 MG/ML VIAL IV SCH (20:00)
[2020-09-10] MEDS ORDERED: LORazepam 0.5 MG (ATIVAN) TABLET PO SCH (21:00)
[2020-09-10 23:04] VITALS: BP 207/98
[2020-09-10 23:59] VITALS: BP 145/58
[2020-09-11] VITALS (8 sets, daily range): BP systolic 168–209; BP diastolic 72–93
[2020-09-11] MEDS: LORazepam 0.5 MG (ATIVAN) TABLET PO SCH ×2 (05:56→21:14)
[2020-09-11] MEDS: ISOSORBIDE MONONITRATE 60 MG (IMDUR) TAB PO SCH (07:56)
[2020-09-11] MEDS: lisINopril 40 MG (PRINIVIL) TABLET PO SCH (07:56)
[2020-09-11] MEDS: dexAMETHasone 6 MG TAB (DECADRON) PO SCH (07:56)
[2020-09-11] MEDS: PANTOPRAZOLE 20 MG TABLET (PROTONIX) PO SCH (07:56)
[2020-09-11] MEDS: CLOPIDOGREL 75 MG (PLAVIX) TABLET PO SCH (07:56)
[2020-09-11] MEDS: FINASTERIDE (PROSCAR) 5 MG TAB PO SCH (07:56)
[2020-09-11] MEDS: hydrALAZINE (APESOLINE) 20 MG/ML VIAL IV PRN ×4 (07:57→23:50)
--- NOTE | 2020-09-11 08:41 | History & Physical-Hospitalist ---
History of Present Illness HPI/Chief Complaint Pt is an 85yoCM with a PMH of HTN, HLD, CAD, NIDDMII, BPH who presented to the hospital due to weakness and fall. He is unablet o tell me much history as his hearing aid battery is and he is very hard of hearing. All he can tell me is he is weak and he wants to get better. He is very upset about having contracted COVID despite being vaccinated and not having his glasses. I did call and speak with his who states that he has been weak for a long time prior to COVID and has been noncompliant with his compression socks which makes ambulation even more difficult. He has fallen multiple times and has bruises and sores from this. She is requesting social worker aide consult to discuss placement in NH. She was also found to be COVID positive yesterday. Source: patient Date Seen 09/11/20 Time Seen by a Provider: 08:41 Attending Physician Fariba Lopez MD PCP Daniel Zepeda DO Referring Physician Date of Admission Sep 10, 2020 at 12:42 Home Medications & Allergies Home Medications Reviewed patient Home Medication Reconciliation performed by pharmacy medication reconciliations welding technician and/or nursing. Patients Allergies have been reviewed. Allergies Allergies Coded Allergies NKANo Known Allergies (Verified Allergy, Unknown, 12/19/14) Past Bwdvrny-Rxqnvn-Ovlyel Hx Patient Social History Marrital Status: Employed/Student: retired Tobacco Use?: Yes Tobacco type used: Cigars, Pipe Smoking Status: Current Everyday Smoker Use of E-Cig and/or Vaping dev: No Substance use?: No Alcohol Use?: No Pt feels they are or have been: Unable to obtain Immunizations Up To Date Date of Influenza Vaccine: Nov 15, 2014 First/Initial COVID19 Vaccinat: STATES HAS HAD BOTH VACCINES Second COVID19 Vaccination Shakeel: 04/22/2020 Date of Pneumonia Vaccine: Mar 03, 2004 Seasonal Allergies Seasonal Allergies: No Current Status Advance Directives: No Communicates: Verbally Primary Language: Syriac Preferred Spoken Language: Syriac Sensory deficits: Hearing impairment Past Medical History Surgeries: Bowel Surgery, Orthopedic Currently Using CPAP: No Currently Using BIPAP: No Coronary Artery Disease, Hypertension Dementia Sexually Transmitted Disease: No HIV/AIDS: No Obstructive Bowel Chronic Back Pain Diabetes, Non-Insulin dep Loss of Vision: Denies Hearing Impairment: Hard of Hearing, Hearing Aide Right, Hearing Aide Left Colon Blood Disorders: No Family Medical History Reviewed Nursing Family Hx Alcoholism (son) Completed stroke (mother) Diabetes mellitus (aunt) Hypertension (mother) No Pertinent Family Hx Review of Systems ROS-Unable to Obtain: very limited as is [place] Constitutional: No chills, No fever; malaise, weakness Respiratory: No cough, No short of breath Physical Exam Physical Exam Vital Signs Vital Signs - First Documented 09/10/20 09/10/20 11:05 13:30 Temp 35.4 Pulse 66 Resp 18 B/P (MAP) 154/95 (114) Pulse Ox 96 O2 Delivery Room Air Capillary Refill : Less Than 3 Seconds Height, Weight, BMI Height: 6'0" Weight: 215lbs. 0.0oz. 97.295100wm; 27.47 BMI Method:Stated General Appearance: No Apparent Distress, Anxious, Chronically ill HEENT: PERRL/EOMI, Moist Mucous Membranes; No Scleral Icterus (L), No Scleral Icterus (R) Neck: Normal Inspection, Supple Respiratory: Lungs Clear, No Respiratory Distress Cardiovascular: Regular Rate, Rhythm, No JVD, No Murmur Gastrointestinal: Normal Bowel Sounds, Soft, Other (colostomy) Extremity: No Calf Tenderness, No Pedal Edema Neurologic/Psychiatric: Alert, Oriented x3, Normal Mood/Affect Skin: Normal Color, Warm/Dry Results Results/Procedures Labs Laboratory Tests 09/10/20 11:25 Patient resulted labs reviewed. Imaging: Reviewed Imaging Report Imaging [facility], [place] NAME: GORDY GRIFFITHS [facility] REC#: [id number] PT STATUS: ADM IN : 1935 PHYSICIAN: MYCHAL JENNINGS MD ADMIT DATE: 09/10/20/ICU Signed Date of Exam:09/10/20 CHEST 1 VIEW, AP/PA ONLY INDICATION: sepsis. TECHNIQUE: Single view chest 12:01 PM. CORRELATION STUDY: 04/02/2014 FINDINGS: Poststernotomy changes. Cardiac enlargement has developed. Vasculature is increased as well. Mildly prominent interstitial markings. No definitive infiltrate. IMPRESSION: 1. Cardiac enlargement with mild increased vascularity. Both features are change from prior to suggest perhaps minimal fluid overload or early failure. Dictated by: Dictated on workstation # [id number] Dict: 09/10/20 1219 Trans: 09/10/201728 CV [id number] Interpreted by: SIVA ARRIAGA DO Electronically signed by: SIVA ARRIAGA DO 09/10/20 1729 Assessment/Plan Admission Diagnosis COVID Admission Status: Inpatient Order (span 2 midnights) Reason for Inpatient Admission: see below Assessment and Plan COVID Debility Admitted for weakness and not hypoxia No indicated antiviral or decadron as is not hypoxic Will discuss with pharmacy about monoclonal antibody infusion PT/OT interested in SNF placement HTN CAD HLD NIDDMII No acute needs but clinically significant Will resume home meds as able DVt ppx: Lovenox Diagnosis/Problems Diagnosis/Problems (1) Essential (primary) hypertension (2) HLD (hyperlipidemia) (3) Non-insulin dependent type 2 diabetes mellitus (4) Prophylactic measure (5) COVID-19 virus infection Status: Acute (6) Weakness Status: Acute (7) Generalized weakness Status: Acute IVANA WESTON MD Sep 11, 2020 08:41
[2020-09-11] MEDS: ATENOLOL 25 MG (TENORMIN) TAB PO SCH (09:40)
[2020-09-11] MEDS ORDERED: diphenhydrAMINE 50 MG/ML INJ (BENADRYL) IV PRN (09:45)
[2020-09-11] MEDS ORDERED: EPINEPHrine INJECTION 1 MG/ML AMP IM PRN (09:45)
[2020-09-11] MEDS ORDERED: CEFP250T2 PO (10:54)
[2020-09-11] MEDS ORDERED: EZET10TA49 PO (10:54)
[2020-09-11] MEDS ORDERED: GUAI600T43 PO (10:57)
[2020-09-11] MEDS ORDERED: NITR0.4T39 SL (10:57)
[2020-09-11] MEDS ORDERED: ACET-93 PO (10:57)
[2020-09-11] MEDS ORDERED: OMEG-109 PO (10:57)
[2020-09-11] MEDS ORDERED: NAPR220T66 PO (10:57)
[2020-09-11] MEDS ORDERED: CASIRIVIMAB/IMDEVIMAB 1,200 MG in NS (IVPB) 250 ML IV NR (11:00)
--- NOTE | 2020-09-11 13:59 | Occupational Therapy Eval ---
OT Evaluation-General/PLF Medical Diagnosis Admission Date Sep 10, 2020 at 12:42 Medical Diagnosis: COVID-19 Onset Date: Sep 08, 2020 Therapy Diagnosis Therapy Diagnosis: weakness, decreasedd ADL status Height/Weight Height (Feet): 6 Height (Inches): 0 Weight (Pounds): 215 Weight (Ounces): 0.0 Precautions Precautions/Isolations: Airborne Isolation, Fall Prevention Referral Physician: Efraín Referral Reason: Evaluation/Treatment Medical History Pertinent Medical History: CABG, CAD, DM, Dementia, HTN Additional Medical History obstructive bowel, chronic back pain, LOVELOCK (RODRIGUEZ L & R), R TKA, colostomy Current History ED due to weakness and falls. indicates he has been weak for a long time prior to ORLINID, pt noncompliant with compression socks. Has fallen multiple times. ( also COVID positive at time of admission) Social History Current Living Status: Spouse ADL-Prior Level of Function SCALE: Activities may be completed with or without assistive devices. 5-Iwovxahqgo-leciiuw completes the activity by him/herself with no assistance from a helper. 5-Set-up or Clean-up Assistance-helper sets up or cleans up; patient completes activity. [place] assists only prior to or following the activity. 4-Supervision or Touching Assistance-helper provides verbal cues and/or touching/steadying and/or contact guard assistance as patient completes activity. Assistance may be provided throughout the activity or intermittently. 3-Partial/Moderate Assistance-helper does LESS THAN HALF the effort. [place] lifts, holds or supports trunk or limbs, but provides less than half the effort. 2-Substantial/Maximal Assistance-helper does MORE THAN HALF the effort. [place] lifts or holds trunk or limbs and provides more than half the effort. 5-Jgkdslqcy-wrcosj does ALL the effort. Patient does none of the effort to complete the activity. Or, the assistance of 2 or more helpers is required for the patient to complete the activity. If activity was not attempted, code reason: 7-Patient Refused. 9-Not Applicable-not attempted and the patient did not perform the activity before the current illness, exacerbation or injury. 10-Not Attempted due to Environmental Limitations-(lack of equipment, weather restraints, etc.). 88-Not Attempted due to Medical Conditions or Safety Concerns. ADL PLOF Comments Pt indicates he required assistance with ADLs at PLOF, assistance with bathing, dressing, and toileting. When asked if he uses a walker, cane, or w/c, pt replied yes to all. PLOF unknown at this time, as pt is poor historian. Pt indicates he takes sponge baths at home. Self Care: Needed Some Help Functional Cognition: Needed Some Help OT Current Status Subjective Pt laying in bed, eating lunch. LOVELOCK but able to hear this therapist with raised voice. Although pt was vaccinated, his and him both became COVID positive, he believes this is from picking up rent checks. Current Glasses/Contacts: Yes Hearing Aids: Yes Upper Extremity ROM WFL, BUE shoulder flexion to approx 140 degrees Upper Extremity Coordination slightly decreased, assistance to open containers at lunch Upper Extremity Strength grossly 3/5 BUEs ADL-Treatment Eating (QC): 5 (assistance opening continers. Pt able to use utensils to cut and eat food.) Other Treatments Pt in bed, OT educated pt on purpose and benefit of OT, pt provided information about PLOF and home set up to his ability. Accuracy of information unknown at this time, as pt indicates he uses a cane, walker, and w/c. Pt required nunu tance opening containers for lunch (needs assistance taking lid off of cup, and assistance with salad dressing). After set up, pt able to eat lunch using utensils without difficulty. In order to increase BUE strength and activity tolerance, pt completed x10 reps each of the following BUE exercises: x10 reps shoulder flexion/extension, x10 elbow flexion/extension, and x10 finger fle xion/extension. Pt's O2 saturation remained in mid 90%s throughout activity. Post tx, pt laying in bed, call light in reach and all needs met, continuing with lunch. Education OT Patient Education: Correct positioning, Exercise program, Home exercise program, Progress toward Goal/Update tx plan, Purpose of tx/functional activities, Reviewed precautions Teaching Recipient: Patient Teaching Methods: Discussion Response to Teaching: Verbalize Understanding OT [facility] Goals Sand[employer]ver Goals Time Frame: Sep 22, 2020 Eating (QC): 5 Oral Hygiene (QC): 5 Toileting Hygiene (QC): 3 Shower/Bathe Self (QC): 3 (sponge bath) Upper Body Dressing (QC): 5 Lower Body Dressing (QC): 3 On/Off Footwear (QC): 3 Additional Goals: 1-Demonstrate ADL Tasks, 2-Verbalize Understanding, 3- ImproveStrength/Olivia 1=Demonstrate adherence to instructed precautions during ADL tasks. 2=Patient will verbalize/demonstrate understanding of assistive devices/modifications for ADL. 3=Patient will improve strength/tolerance for activity to enable patient to perform ADL's. OT Education/Plan Problem List/Assessment Assessment: Decreased Activ Tolerance, Decreased UE Strength, Impaired Funct B alance, Impaired I ADL's, Impaired Self-Care Skills Discharge Recommendations Plan/Recommendations: Continue POC Treatment Plan/Plan of Care Patient would benefit from OT for education, treatment and training to promote independence in ADL's, mobility, safety and/or upper extremity function for ADL's. Plan of Care: ADL Retraining, Functional Mobility, UE Funct Exercise/Act Treatment Duration: Sep 22, 2020 Frequency: 5 times per week Estimated Hrs Per Day: .25 hour per day Rehab Potential: Fair Time/GCodes Start Time: 13:20 Stop Time: 13:30 Total Time Billed (hr/min): 10 Billed Treatment Time 1, ANNIKA MENJIVAR OT Sep 11, 2020 13:59
--- NOTE | 2020-09-11 14:15 | Physical Therapy Evaluation ---
PT Evaluation-General Medical Diagnosis Admission Date Sep 10, 2020 at 12:42 Medical Diagnosis: COVID-19 Onset Date: Sep 08, 2020 Therapy Diagnosis Therapy Diagnosis: weakness Height/Weight Height (Feet): 6 Height (Inches): 0 Weight (Pounds): 215 Weight (Ounces): 0.0 Precautions Precautions/Isolations: Airborne Isolation, Fall Prevention Weight Bear Status Full Weight Bearing Full Weight Bearing Referral Physician: Efraín Reason for Referral: Evaluation/Treatment, Strengthening Medical History Pertinent Medical History: CABG, CAD, DM, Dementia, HTN Social History Current Living Status: Spouse Pt reports he uses a walker sometimes at home. According to physician history patient had limited mobility at home and his was considering skilled placement. He has had multiple falls in the past few months. Prior Prior Level of Function SCALE: Activities may be completed with or without assistive devices. 6-Bvezpmkarw-zhqlpkb completes the activity by him/herself with no assistance from a helper. 5-Set-up or Clean-up Assistance-helper sets up or cleans up; patient completes activity. [place] assists only prior to or following the activity. 4-Supervision or Touching Assistance-helper provides verbal cues and/or touching/steadying and/or contact guard assistance as patient completes activity. Assistance may be provided throughout the activity or intermittently. 3-Partial/Moderate Assistance-helper does LESS THAN HALF the effort. [place] lifts, holds or supports trunk or limbs, but provides less than half the effort. 2-Substantial/Maximal Assistance-helper does MORE THAN HALF the effort. [place] lifts or holds trunk or limbs and provides more than half the effort. 7-Zweklgpky-isolfd does ALL the effort. Patient does none of the effort to complete the activity. Or, the assistance of 2 or more helpers is required for the patient to complete the activity. If activity was not attempted, code reason: 7-Patient Refused. 9-Not Applicable-not attempted and the patient did not perform the activity before the current illness, exacerbation or injury. 10-Not Attempted due to Environmental Limitations-(lack of equipment, weather restraints, etc.). 88-Not Attempted due to Medical Conditions or Safety Concerns. Bed Mobility: 5 Transfers (B,C,W/C): 6 Gait: 6 Indoor Mobility (Ambulation): Needed Some Help Prior Devices Use: Walker Pt has a history of falls PT Evaluation-Current Subjective Pt admitted via ICU due to progressive weakness and falls. Pt reports he and his were both vacinated. They were traveling around picking up rent checks and he believes they contract COVID. He expresses he wants to get well and out of the hospital. Objective Patient Orientation: Normal For Age ROM/Strength Strength Upper Extremities gross 4/5 Strength Lower Extremities gross 4/5 Integumentary/Posture Bowel Incontinence: Yes (Colostomy) Sensory Vision: Functional Hearing: Impaired (very hard of hearing) Transfers Roll Left to Right (QC): 4 Sit to Lying (QC): 4 Lying to Sitting/Side of Bed(Q: 4 Sit to Stand (QC): 4 Chair/Fvw-lw-Ujdyp Xfer(QC): 4 Pt transferred to edge of bed with very minimal assist for trunk strength. Came sit to stand with only CGA using bedside chair to assist standing. Returned to bed with Min A to scoot up in bed Gait Gait Assistive Device: FWW Comments/Gait Description Gait not assessed at time of eval but based on standing balance and stability patient will be able to walk short distances with a FWW and assist. Balance Sitting Static: Good Sitting Dynamic: Good Standing Static: Fair Standing Dynamic: Poor Assessment/Needs Pt is weak from prolonged lack of physical activity. He had pre-existing decline in mobility which has been exasperated by COVID 19 illness. He will benefit from PT to improve strength and functional mobility. Rehab Potential: Fair Post Rehab Potential-Barriers: COVID 19; pre-existing physical decline PT Short Term Goals Short Term Goals Time Frame: Sep 18, 2020 Roll Left & Right: 5 Sit to lyin Lying to sitting on side of be: 5 Sit to stand: 5 Chair/nfp-fc-llozq transfer: 5 Walk 10 feet: 5 PT Striper Goals Striper Goals PT Striper Goals Time Frame: Sep 25, 2020 Roll Left & Right (QC): 6 Sit to Lying (QC): 6 Lying-Sitting on Side/Bed(QC): 6 Sit to Stand (QC): 6 Chair/Cun-sz-Icasu Xfer(QC): 6 Walk 50ft with 2 Turns (QC): 5 PT Plan Problem List Problem List: Activity Tolerance, Functional Strength, Balance, Gait, Transfer, Bed Mobility Treatment/Plan Treatment Plan: Continue Plan of Care Treatment Plan: Bed Mobility, Functional Activity Olivia, Functional Strength, Gait, Therapeutic Exercise, Transfers Treatment Duration: Sep 25, 2020 Frequency: 6 times per week Estimated Hrs Per Day: .25 hour per day Patient and/or Family Agrees t: Yes Time/GCodes Time In: 1345 Time Out: 1418 Total Billed Treatment Time: 33 Total Billed Treatment visit, evaluation Moderate complexity 33 min MONA ESQUIVEL PT Sep 11, 2020 14:15
[2020-09-11] MEDS: ENOXAPARIN 40 MG/0.4 ML (LOVENOX) SYR SC SCH (17:48)
[2020-09-12] VITALS (7 sets, daily range): BP systolic 167–202; BP diastolic 71–108
[2020-09-12] MEDS: guaiFENesin SYRUP 100 MG/5 ML 10 ML (ROBITUSSIN SF) PO PRN (02:31)
[2020-09-12 04:54] LABS: HEMATOCRIT 35 % (40-54); HEMOGLOBIN 11.4 g/dL (13.3-17.7); MEAN CORPUSCULAR HEMOGLOBIN 31 pg (25-34); MEAN CORPUSCULAR HGB CONC 33 g/dL (32-36); MEAN CORPUSCULAR VOLUME 94 fL (80-99); MEAN PLATELET VOLUME 10.4 fL (9.0-12.2); PLATELET COUNT 207 10^3/uL (130-400); WHITE BLOOD COUNT 13.2 10^3/uL (4.3-11.0)
[2020-09-12 05:00] LABS: POTASSIUM 4.6 MMOL/L (3.6-5.0)
[2020-09-12 05:01] LABS: CALCIUM 8.7 MG/DL (8.5-10.1)
[2020-09-12 05:06] LABS: CREATININE SERUM 1.19 MG/DL (0.60-1.30)
[2020-09-12] MEDS: hydrALAZINE (APESOLINE) 20 MG/ML VIAL IV PRN (06:35)
--- NOTE | 2020-09-12 07:06 | Progress Note - Hospitalist ---
Subjective HPI/CC On Admission Date Seen by Provider: Sep 12, 2020 Time Seen by Provider: 07:02 Pt is an 85yoCM with a PMH of HTN, HLD, CAD, NIDDMII, BPH who presented to the hospital due to weakness and fall. He is unablet o tell me much history as his hearing aid battery is and he is very hard of hearing. All he can tell me is he is weak and he wants to get better. He is very upset about having contracted COVID despite being vaccinated and not having his glasses. I did call and speak with his who states that he has been weak for a long time prior to COVID and has been noncompliant with his compression socks which makes ambulation even more difficult. He has fallen multiple times and has bruises and sores from this. She is requesting rn social services consult to discuss placement in NH. She was also found to be COVID positive yesterday. Subjective/Events-last exam Pt doing ok. He seems emotionally upset and is worried about his . He was able to get his glasses and hearing aid batteries yesterday. No specific complaints. RN at bedside and states heart rate down to the 40s overnight but asymptomatic. Focused Exam Lactate Level 09/10/20 11:25: Lactic Acid Level 0.99 Time of Focused Exam: 14:00 Objective Exam Vital Signs Vital Signs Date Time Temp Pulse Resp B/P (MAP) Pulse Ox O2 Delivery O2 Flow Rate FiO2 09/12/20 06:41 172/90 (117) 09/12/20 06:33 36.1 52 16 93 Room Air 09/11/20 18:49 0.00 Capillary Refill : Less Than 3 Seconds General Appearance: No Apparent Distress, Chronically ill Respiratory: Lungs Clear, No Respiratory Distress Cardiovascular: Regular Rate, Rhythm, No Murmur Neurologic/Psychiatric: Alert, Oriented x3 Results/Procedures Lab Laboratory Tests 09/12/20 04:33 Patient resulted labs reviewed. Imaging: Reviewed Imaging Report Assessment/Plan Assessment and Plan Assess & Plan/Chief Complaint COVID Debility Admitted for weakness and not hypoxia No indicated antiviral or decadron as is not hypoxic Received monocloncal antibody infusion yesterday PT/OT interested in SNF placement- pending COVID bed status availability may have to consider swing bed placement for PT/OT to continue to work on gains here IRF consult placed as well HTN BP very elevated Continue home meds Add amlodipine for uncontrolled hypertension CAD HLD NIDDMII No acute needs but clinically significant Continue home meds DVt ppx: Lovenox Critical Care Critically Ill Patient Diagnosis/Problems Diagnosis/Problems (1) Essential (primary) hypertension (2) HLD (hyperlipidemia) (3) Non-insulin dependent type 2 diabetes mellitus (4) Prophylactic measure (5) COVID-19 virus infection Status: Acute (6) Weakness Status: Acute (7) Generalized weakness Status: Acute IVANA WESTON MD Sep 12, 2020 07:06
[2020-09-12] MEDS: FINASTERIDE (PROSCAR) 5 MG TAB PO SCH (08:46)
[2020-09-12] MEDS: LORazepam 0.5 MG (ATIVAN) TABLET PO SCH ×2 (08:46→20:20)
[2020-09-12] MEDS: lisINopril 40 MG (PRINIVIL) TABLET PO SCH (08:46)
[2020-09-12] MEDS: dexAMETHasone 6 MG TAB (DECADRON) PO SCH (08:47)
[2020-09-12] MEDS: amLODIPine 10 MG (NORVASC) TAB PO SCH (08:47)
[2020-09-12] MEDS: ISOSORBIDE MONONITRATE 60 MG (IMDUR) TAB PO SCH (08:47)
[2020-09-12] MEDS: CLOPIDOGREL 75 MG (PLAVIX) TABLET PO SCH (08:47)
[2020-09-12] MEDS: ATENOLOL 25 MG (TENORMIN) TAB PO SCH (08:47)
[2020-09-12] MEDS: PANTOPRAZOLE 20 MG TABLET (PROTONIX) PO SCH (08:47)
--- NOTE | 2020-09-12 09:28 | Physical Therapy Daily Note ---
PT Daily Note-Current Subjective Patient agrees to PT. Mental Status Patient Orientation: Person, Time, Situation Attachments: Colostomy/Ileostomy, [place] Catheter Transfers SCALE: Activities may be completed with or without assistive devices. 9-Ecrarebbzi-croczsq completes the activity by him/herself with no assistance from a helper. 5-Set-up or Clean-up Assistance-helper sets up or cleans up; patient completes activity. [place] assists only prior to or following the activity. 4-Supervision or Touching Assistance-helper provides verbal cues and/or touching/steadying and/or contact guard assistance as patient completes activity. Assistance may be provided throughout the activity or intermittently. 3-Partial/Moderate Assistance-helper does LESS THAN HALF the effort. [place] lifts, holds or supports trunk or limbs, but provides less than half the effort. 2-Substantial/Maximal Assistance-helper does MORE THAN HALF the effort. [place] lifts or holds trunk or limbs and provides more than half the effort. 8-Mzqygskvx-toutpo does ALL the effort. Patient does none of the effort to complete the activity. Or, the assistance of 2 or more helpers is required for the patient to complete the activity. If activity was not attempted, code reason: 7-Patient Refused. 9-Not Applicable-not attempted and the patient did not perform the activity before the current illness, exacerbation or injury. 10-Not Attempted due to Environmental Limitations-(lack of equipment, weather restraints, etc.). 88-Not Attempted due to Medical Conditions or Safety Concerns. Sit to Lying (QC): 4 (SBA) Lying to Sitting/Side of Bed(Q: 4 (SBA) Weight Bearing Full Weight Bearing Full Weight Bearing Exercises Supine Ex: Ankle pumps, Heel Slides, Straight leg raise Supine Reps: 12 (AROM) Seated Therapy Exercises: Ankle pumps, Long arc quads Seated Reps: 12 (AROM) Treatments Patient's colostomy malfunctioned during PT session/RN notified Assessment Tolerates minimal activity/sat EOB SBA. patient returned to supine with HOB elevated and breakfast in situ. PT Short Term Goals Short Term Goals Time Frame: Sep 18, 2020 Roll Left & Right: 5 Sit to lyin Lying to sitting on side of be: 5 Sit to stand: 5 Chair/ajj-da-zxexz transfer: 5 Walk 10 feet: 5 PT Half-Way Goals Sales & Service Associate Goals PT Half-Way Goals Time Frame: Sep 25, 2020 Roll Left & Right (QC): 6 Sit to Lying (QC): 6 Lying-Sitting on Side/Bed(QC): 6 Sit to Stand (QC): 6 Chair/Bsk-nv-Sydfj Xfer(QC): 6 Walk 50ft with 2 Turns (QC): 5 PT Plan Treatment/Plan Treatment Plan: Continue Plan of Care Treatment Plan: Bed Mobility, Functional Activity Olivia, Functional Strength, Gait, Therapeutic Exercise, Transfers Treatment Duration: Sep 25, 2020 Frequency: 6 times per week Estimated Hrs Per Day: .25 hour per day Patient and/or Family Agrees t: Yes Time/GCodes Time In: 846 Time Out: 900 Total Billed Treatment Time: 14 Total Billed Treatment 1 visit EX 14 min GRANT CATHERINE PT Sep 12, 2020 09:28
--- NOTE | 2020-09-12 13:58 | Occupational Ther Daily Note ---
OT Current Status-Daily Note Subjective No pain reported. Appearance Pt. in bed. Motioning for OT to come into room before OT enters. Mental Status/Objective Patient Orientation: Person, Place Attachments: IV, Telemetry ADL-Treatment Therapy Code Descriptions/Definitions Functional [place] Measure: 0=Not Assessed/NA 4=Minimal Assistance 1=Total Assistance 5=Supervision or Setup 2=Maximal Assistance 6=Modified [place] 3=Moderate Assistance 7=Complete IndependenceSCALE: Activities may be completed with or without assistive devices. 5-Iresrvbnuw-ihiaubr completes the activity by him/herself with no assistance from a helper. 5-Set-up or Clean-up Assistance-helper sets up or cleans up; patient completes activity. [place] assists only prior to or following the activity. 4-Supervision or Touching Assistance-helper provides verbal cues and/or touching/steadying and/or contact guard assistance as patient completes activity. Assistance may be provided throughout the activity or intermittently. 3-Partial/Moderate Assistance-helper does LESS THAN HALF the effort. [place] lifts, holds or supports trunk or limbs, but provides less than half the effort. 2-Substantial/Maximal Assistance-helper does MORE THAN HALF the effort. [place] lifts or holds trunk or limbs and provides more than half the effort. 0-Eqhdafctg-znihqq does ALL the effort. Patient does none of the effort to complete the activity. Or, the assistance of 2 or more helpers is required for the patient to complete the activity. If activity was not attempted, code reason: 7-Patient Refused. 9-Not Applicable-not attempted and the patient did not perform the activity before the current illness, exacerbation or injury. 10-Not Attempted due to Environmental Limitations-(lack of equipment, weather restraints, etc.). 88-Not Attempted due to Medical Conditions or Safety Concerns. On/Off Footwear: 2 Other Treatment Pt. in bed. States that he wants to ambulate. OT spoke with nursing prior to working with pt. Nursing would like for pt. to be back in bed at end of treatment due to pt's impulsivity, and inability to get into room quickly due to Covid precautions. OT dons slipper socks with max assist needed, as pt. unable to do for self. Pt. transfers supine-sit with min assist. Pt. stands from elevated surface with CGA, and ambulates with walker approximately 10 feet to chair, with CGA. Pt. transfers to chair and rests. When trying to stand from chair, it is noted that chair is at lower surface, and pt. requires max assist from lower surface. Pt. able to ambulate back to bed with CGA. Transfers to bed with CGA. All needs met and bed alarm set. Education OT Patient Education: Correct positioning, Modified ADL techniques, Progress toward Goal/Update tx plan, Purpose of tx/functional activities, Reviewed precautions, Rehab process, Transfer techniques Teaching Recipient: Patient Teaching Methods: Demonstration, Discussion Response to Teaching: Verbalize Understanding, Return Demonstration, Reinforcement Needed OT Care Home Goals Livestock Brands Inspector Goals Time Frame: Sep 22, 2020 Eating (QC): 5 Oral Hygiene (QC): 5 Toileting Hygiene (QC): 3 Shower/Bathe Self (QC): 3 (sponge bath) Upper Body Dressing (QC): 5 Lower Body Dressing (QC): 3 On/Off Footwear (QC): 3 Additional Goals: 1-Demonstrate ADL Tasks, 2-Verbalize Understanding, 3- ImproveStrength/[place]livia 1=Demonstrate adherence to instructed precautions during ADL tasks. 2=Patient will verbalize/demonstrate understanding of assistive devic es/modifications for ADL. 3=Patient will improve strength/tolerance for activity to enable patient to perform ADL's. OT Education/Plan Problem List/Assessment Assessment: Decreased Activ Tolerance, Decreased Safety Aware, Decreased UE Strength, Dependent Transfers, Impaired Bed Mobility, Impaired Funct Balance, Impaired I ADL's, Impaired Self-Care Skills Discharge Recommendations Plan/Recommendations: Continue POC Therapy Discharge Recommendati: Post Acute OT Treatment Plan/Plan of Care Treatment,Training & Education: Yes Patient would benefit from OT for education, treatment and training to promote independence in ADL's, mobility, safety and/or upper extremity function for ADL's. Plan of Care: ADL Retraining, Functional Mobility, UE Funct Exercise/Act Treatment Duration: Sep 22, 2020 Frequency: 5 times per week Estimated Hrs Per Day: .25 hour per day Agreement: Yes Rehab Potential: Fair Time/GCodes Start Time: 11:50 Stop Time: 12:20 Total Time Billed (hr/min): 30 Billed Treatment Time 1, FA x 30minutes JAMES FIERRO OT Sep 12, 2020 13:58
[2020-09-12] MEDS: ENOXAPARIN 40 MG/0.4 ML (LOVENOX) SYR SC SCH (15:03)
[2020-09-13] VITALS: BP 199/151
[2020-09-13] MEDS: LORazepam INJ 2 MG/ML (ATIVAN) VIAL IVP PRN ×4 (00:33→22:36)
[2020-09-13 07:35] VITALS: BP 198/89
--- NOTE | 2020-09-13 08:30 | Progress Note - Hospitalist ---
Subjective HPI/CC On Admission Date Seen by Provider: Sep 13, 2020 Time Seen by Provider: 08:27 Pt is an 85yoCM with a PMH of HTN, HLD, CAD, NIDDMII, BPH who presented to the hospital due to weakness and fall. He is unablet o tell me much history as his hearing aid battery is and he is very hard of hearing. All he can tell me is he is weak and he wants to get better. He is very upset about having contracted COVID despite being vaccinated and not having his glasses. I did call and speak with his who states that he has been weak for a long time prior to COVID and has been noncompliant with his compression socks which makes ambulation even more difficult. He has fallen multiple times and has bruises and sores from this. She is requesting pediatric social worker consult to discuss placement in [place]. She was also found to be COVID positive yesterday. Subjective/Events-last exam Pt laying in bed. Was quite agitated overnight and received IV ativan. Somewhat confused this morning now. Focused Exam Lactate Level 09/10/20 11:25: Lactic Acid Level 0.99 Time of Focused Exam: 14:00 Objective Exam Vital Signs Vital Signs Date Time Temp Pulse Resp B/P (MAP) Pulse Ox O2 Delivery O2 Flow Rate FiO2 09/13/20 07:35 36.4 74 22 198/89 (125) 93 Room Air 09/11/20 18:49 0.00 Capillary Refill : Less Than 3 Seconds General Appearance: Anxious, Chronically ill Respiratory: Lungs Clear, No Respiratory Distress Cardiovascular: Regular Rate, Rhythm, No Murmur Neurologic/Psychiatric: Alert, Disoriented Results/Procedures Lab Patient resulted labs reviewed. Imaging: Reviewed Imaging Report Assessment/Plan Assessment and Plan Assess & Plan/Chief Complaint COVID Debility Admitted for weakness and not hypoxia No indicated antiviral or decadron as is not hypoxic Received monocloncal antibody infusion 09/11 PT/OT interested in SNF placement- pending COVID bed status availability may have to consider swing bed placement for PT/OT to continue to work on gains here IRF consult placed as well HTN BP very elevated, may be due some to agitation Continue home meds with addition on amlodipine Hydralazine prn until amlodipine gets to steady state CAD HLD NIDDMII No acute needs but clinically significant Continue home meds DVt ppx: Lovenox Critical Care Critically Ill Patient Diagnosis/Problems Diagnosis/Problems (1) Essential (primary) hypertension (2) HLD (hyperlipidemia) (3) Non-insulin dependent type 2 diabetes mellitus (4) Prophylactic measure (5) COVID-19 virus infection Status: Acute (6) Weakness Status: Acute (7) Generalized weakness Status: Acute IVANA WESTON MD Sep 13, 2020 08:30
[2020-09-13] MEDS: FINASTERIDE (PROSCAR) 5 MG TAB PO SCH (08:57)
[2020-09-13] MEDS: LORazepam 0.5 MG (ATIVAN) TABLET PO SCH ×2 (08:57→20:19)
[2020-09-13] MEDS: ISOSORBIDE MONONITRATE 60 MG (IMDUR) TAB PO SCH (08:57)
[2020-09-13] MEDS: amLODIPine 10 MG (NORVASC) TAB PO SCH (08:58)
[2020-09-13] MEDS: PANTOPRAZOLE 20 MG TABLET (PROTONIX) PO SCH (08:58)
[2020-09-13] MEDS: CLOPIDOGREL 75 MG (PLAVIX) TABLET PO SCH (08:58)
[2020-09-13] MEDS: ATENOLOL 25 MG (TENORMIN) TAB PO SCH (08:58)
[2020-09-13] MEDS: dexAMETHasone 6 MG TAB (DECADRON) PO SCH (08:58)
[2020-09-13] MEDS: lisINopril 40 MG (PRINIVIL) TABLET PO SCH (08:58)
[2020-09-13 11:35] VITALS: BP 163/83
--- NOTE | 2020-09-13 13:44 | Physical Therapy Daily Note ---
PT Daily Note-Current Subjective Eyes closed throughout treatment and does not verbalize. Transfers SCALE: Activities may be completed with or without assistive devices. 0-Opkibpuanr-lczjfmj completes the activity by him/herself with no assistance from a helper. 5-Set-up or Clean-up Assistance-helper sets up or cleans up; patient completes activity. [place] assists only prior to or following the activity. 4-Supervision or Touching Assistance-helper provides verbal cues and/or touching/steadying and/or contact guard assistance as patient completes activity. Assistance may be provided throughout the activity or intermittently. 3-Partial/Moderate Assistance-helper does LESS THAN HALF the effort. [place] lifts, holds or supports trunk or limbs, but provides less than half the effort. 2-Substantial/Maximal Assistance-helper does MORE THAN HALF the effort. [place] lifts or holds trunk or limbs and provides more than half the effort. 7-Iirxmsapc-fawnqw does ALL the effort. Patient does none of the effort to complete the activity. Or, the assistance of 2 or more helpers is required for the patient to complete the activity. If activity was not attempted, code reason: 7-Patient Refused. 9-Not Applicable-not attempted and the patient did not perform the activity before the current illness, exacerbation or injury. 10-Not Attempted due to Environmental Limitations-(lack of equipment, weather restraints, etc.). 88-Not Attempted due to Medical Conditions or Safety Concerns. Weight Bearing Full Weight Bearing Full Weight Bearing Treatments Pt difficult to arouse and does not verbalize thorughout session. Pt does follow and allow passive movement with intermittent attempts to assist. Pt is dependent to transition sit to from supine and to sit EOB. Pt back to bed post visit and dependent to position. Bed alarm activated with bedrails up. Assessment Pt very groggy, likely from medication. Pt allowed passive activity and did not resist and intermittently moved his arms or legs to assist. PT Short Term Goals Short Term Goals Time Frame: Sep 18, 2020 Roll Left & Right: 5 Sit to lyin Lying to sitting on side of be: 5 Sit to stand: 5 Chair/xom-cn-zpbcp transfer: 5 Walk 10 feet: 5 PT Electric Clock Mechanic Goals Electric Clock Mechanic Goals PT Electric Clock Mechanic Goals Time Frame: Sep 25, 2020 Roll Left & Right (QC): 6 Sit to Lying (QC): 6 Lying-Sitting on Side/Bed(QC): 6 Sit to Stand (QC): 6 Chair/Fxu-pd-Luisc Xfer(QC): 6 Walk 50ft with 2 Turns (QC): 5 PT Plan Problem List Problem List: Activity Tolerance, Functional Strength, Safety, Balance, Gait, Transfer, Bed Mobility Treatment/Plan Treatment Plan: Continue Plan of Care Treatment Plan: Bed Mobility, Functional Activity Olivia, Functional Strength, Gait, Therapeutic Exercise, Transfers Treatment Duration: Sep 25, 2020 Frequency: 6 times per week Estimated Hrs Per Day: .25 hour per day Patient and/or Family Agrees t: Yes Time/GCodes Time In: 1110 Time Out: 1125 Total Billed Treatment Time: 15 Total Billed Treatment visit FA 15 GASPER CHEN PT Sep 13, 2020 13:44
--- NOTE | 2020-09-13 15:25 | Occupational Ther Daily Note ---
OT Current Status-Daily Note Subjective Pt. agitated at first when OT came into room. Attempting to remove blankets but does not verbalize. Nursing okay for OT to attempt working with pt. ADL-Treatment Therapy Code Descriptions/Definitions Functional [place] Measure: 0=Not Assessed/NA 4=Minimal Assistance 1=Total Assistance 5=Supervision or Setup 2=Maximal Assistance 6=Modified [place] 3=Moderate Assistance 7=Complete IndependenceSCALE: Activities may be completed with or without assistive devices. 2-Nkleflcxax-bxgpxbi completes the activity by him/herself with no assistance from a helper. 5-Set-up or Clean-up Assistance-helper sets up or cleans up; patient completes activity. [place] assists only prior to or following the activity. 4-Supervision or Touching Assistance-helper provides verbal cues and/or touching/steadying and/or contact guard assistance as patient completes activity. Assistance may be provided throughout the activity or intermittently. 3-Partial/Moderate Assistance-helper does LESS THAN HALF the effort. [place] lifts, holds or supports trunk or limbs, but provides less than half the effort. 2-Substantial/Maximal Assistance-helper does MORE THAN HALF the effort. [place] lifts or holds trunk or limbs and provides more than half the effort. 3-Pxutmfwrx-gqhtto does ALL the effort. Patient does none of the effort to complete the activity. Or, the assistance of 2 or more helpers is required for the patient to complete the activity. If activity was not attempted, code reason: 7-Patient Refused. 9-Not Applicable-not attempted and the patient did not perform the activity before the current illness, exacerbation or injury. 10-Not Attempted due to Environmental Limitations-(lack of equipment, weather restraints, etc.). 88-Not Attempted due to Medical Conditions or Safety Concerns. Eating (QC): 2 On/Off Footwear: 1 Toileting Hygiene (QC): 1 Other Treatment OT attempts to have pt. sit on EOB. Pt. encouraged to transfer to EOB with max assist. Pt. confused and unable to follow cues. Bed put into chair position and OT changed pt's gown, cleansed face with warm washcloth. Pt. responded to this and opened eyes. Food tray brought in, and pt. able to continue opening eyes with prompting. Took small bites of soft food, and chewed adequately. Pt. able to take small sips. Held fork only one time with prompting, with hand over hand assist to bring to mouth. After this, did not participate again in self feeding, and OT completed feeding task. Pt. ate small bites until he closed his eyes and refused to eat more. Pt. positioned to comfort level and bed alarm set. Nurse aide notified of pt. current status. All needs met. Education OT Patient Education: Correct positioning, Modified ADL techniques, Progress toward Goal/Update tx plan, Purpose of tx/functional activities, Reviewed precautions, Rehab process, Transfer techniques Teaching Recipient: Patient Teaching Methods: Demonstration, Discussion Response to Teaching: Unable to Comprehend, Reinforcement Needed OT Computer Art Instructor Goals Computer Art Instructor Goals Time Frame: Sep 22, 2020 Eating (QC): 5 Oral Hygiene (QC): 5 Toileting Hygiene (QC): 3 Shower/Bathe Self (QC): 3 (sponge bath) Upper Body Dressing (QC): 5 Lower Body Dressing (QC): 3 On/Off Footwear (QC): 3 Additional Goals: 1-Demonstrate ADL Tasks, 2-Verbalize Understanding, 3- ImproveStrength/[place] 1=Demonstrate adherence to instructed precautions during ADL tasks. 2=Patient will verbalize/demonstrate understanding of assistive devices/modifications for ADL. 3=Patient will improve strength/tolerance for activity to enable patient to perform ADL's. OT Education/Plan Problem List/Assessment Assessment: Decreased Activ Tolerance, Decreased Safety Aware, Decreased UE Strength, Dependent Transfers, Impaired Bed Mobility, Impaired Cognition, Impaired Coordination, Impaired Funct Balance, Impaired I ADL's, Impaired Self- Care Skills, Restricted Funct UE ROM Discharge Recommendations Plan/Recommendations: Continue POC Therapy Discharge Recommendati: 24 Hour Supervision Treatment Plan/Plan of Care Patient would benefit from OT for education, treatment and training to promote independence in ADL's, mobility, safety and/or upper extremity function for ADL's. Plan of Care: ADL Retraining, Functional Mobility, UE Funct Exercise/Act Treatment Duration: Sep 22, 2020 Frequency: 5 times per week Estimated Hrs Per Day: .25 hour per day Agreement: Yes Rehab Potential: Fair Time/GCodes Start Time: 13:10 Stop Time: 13:40 Total Time Billed (hr/min): 30 Billed Treatment Time 1, ADL x 2 JAMES FIERRO OT Sep 13, 2020 15:25
[2020-09-13] MEDS: ENOXAPARIN 40 MG/0.4 ML (LOVENOX) SYR SC SCH (15:31)
[2020-09-13 16:01] VITALS: BP 176/73
[2020-09-13 19:49] VITALS: BP 162/77
[2020-09-13] MEDS: guaiFENesin SYRUP 100 MG/5 ML 10 ML (ROBITUSSIN SF) PO PRN (20:19)
[2020-09-13] MEDS ORDERED: risperiDONE 0.5 MG (RisperDAL) TABLET PO SCH (21:00)
[2020-09-13 23:34] VITALS: BP 154/83
[2020-09-14] MEDS: LORazepam INJ 2 MG/ML (ATIVAN) VIAL IVP PRN (01:59)
[2020-09-14] MEDS: guaiFENesin SYRUP 100 MG/5 ML 10 ML (ROBITUSSIN SF) PO PRN (02:01)
[2020-09-14 03:41] VITALS: BP 138/87
[2020-09-14 08:00] VITALS: BP 190/100
[2020-09-14] MEDS: FINASTERIDE (PROSCAR) 5 MG TAB PO SCH (08:16)
[2020-09-14] MEDS: ATENOLOL 25 MG (TENORMIN) TAB PO SCH (08:16)
[2020-09-14] MEDS: ISOSORBIDE MONONITRATE 60 MG (IMDUR) TAB PO SCH (08:16)
[2020-09-14] MEDS: dexAMETHasone 6 MG TAB (DECADRON) PO SCH (08:16)
[2020-09-14] MEDS: CLOPIDOGREL 75 MG (PLAVIX) TABLET PO SCH (08:16)
[2020-09-14] MEDS: LORazepam 0.5 MG (ATIVAN) TABLET PO SCH (08:16)
[2020-09-14] MEDS: lisINopril 40 MG (PRINIVIL) TABLET PO SCH (08:16)
[2020-09-14] MEDS: amLODIPine 10 MG (NORVASC) TAB PO SCH (08:16)
[2020-09-14] MEDS: PANTOPRAZOLE 20 MG TABLET (PROTONIX) PO SCH (08:16)
[2020-09-14 12:00] VITALS: BP 210/90
[2020-09-14] MEDS: hydrALAZINE (APESOLINE) 20 MG/ML VIAL IV PRN (12:13)
--- NOTE | 2020-09-14 12:40 | Discharge Summary ---
Diagnosis/Chief Complaint Date of Admission Sep 10, 2020 at 12:42 Date of Discharge Admission Diagnosis COVID Primary Care ZepedaDaniel palmer DO Discharge Diagnosis (1) Essential (primary) hypertension (2) HLD (hyperlipidemia) (3) Non-insulin dependent type 2 diabetes mellitus (4) Prophylactic measure (5) COVID-19 virus infection Status: Acute (6) Weakness Status: Acute (7) Generalized weakness Status: Acute Discharge Summary Discharge Physical Exam Allergies: Coded Allergies: NKANo Known Allergies (Verified Allergy, Unknown, 12/19/14) Vitals & I&Os Vital Signs Date Time Temp Pulse Resp B/P (MAP) Pulse Ox O2 Delivery O2 Flow Rate FiO2 09/14/20 12:00 36.5 69 22 210/90 (130) 92 Room Air 09/13/20 20:58 2.00 General Appearance: No Apparent Distress, Chronically ill Cardiovascular: Regular Rate, Rhythm, No Murmur Gastrointestinal: Normal Bowel Sounds, Soft Hospital Course Pt was admitted to the hospital due to COVID19 and generalized weakness. He had completed vaccination and never became hypoxic just suffered from weakness. He was unable to discharge to a long term facility due to his COVID positive status. He was admitted to swing bed for continue skilled therapies to work on strengthening. Labs (last 24 hrs) Laboratory Tests 09/16/20 05:20: Glucometer 186H Microbiology 09/10/20 Blood Culture - Final, Complete No growth 09/10/20 Urine Culture - Final, Complete NO GROWTH Patient resulted labs reviewed. Pending Labs Laboratory Tests 09/16/20 05:20: Glucometer 186 Imaging: Reviewed Imaging Report Discussion & Recommendations Discharge Planning: >30 minutes discharge planning Discharge Home Medications: Active Scripts Active Reported Nitroglycerin 0.4 Mg Tab.subl 0.4 Mg SL UD PRN Aleve (Naproxen Sodium) 220 Mg Tablet 440 Mg PO BID Mucinex (Guaifenesin) 600 Mg Tab.er.12h 600 Mg PO Q12H PRN Acetaminophen 500 Mg Tablet 1,000 Mg PO BID Fish Oil 1,200 mg Softgel ([place]-3 Fatty Acids/Fish Oil) 1 Each Capsule 1 Each PO DAILY Cefprozil 250 Mg Tablet 250 Mg PO BID FILLED 09-05-2020 #14/7 DAY SUPPLY Ezetimibe 10 Mg Tablet 10 Mg PO DAILY Atorvastatin Calcium 20 Mg Tablet 20 Mg PO DAILY Ativan (Lorazepam) 0.5 Mg Tablet 0.25 Mg PO BID TAKES OF A 0.5MG Clopidogrel (Clopidogrel Bisulfate) 75 Mg Tablet 75 Mg PO DAILY Fosinopril Sodium 40 Mg Tablet 40 Mg PO DAILY Isosorbide Mononitrate ER (Isosorbide Mononitrate) 60 Mg Tab 60 Mg PO DAILY Probiotic (L.acidoph & Paracasei,B.lactis) 1 Each Capsule 1 Cap PO DAILY Glimepiride 1 Mg Tablet 1 Mg PO DAILY Atenolol 25 Mg Tablet 25 Mg PO DAILY Omeprazole 20 Mg Capsule.dr 20 Mg PO DAILY Finasteride 5 Mg Tablet 5 Mg PO DAILY Instructions to patient/family Please see electronic discharge instructions given to patient. IVANA WESTON MD Sep 14, 2020 12:40
== END 2020-09-14 12:46 | disposition swing bed (61) | DRG 179 ==
LOC: EDUNIT# 11:00 → ER 11:03 → ICU 12:42 → 4TH 09-13 14:46
PROVIDERS: ADMIT Internal Medicine; ATTEND Family Medicine
DX: U07.1 COVID-19 (principal); J20.8 Acute bronchitis due to other specified organisms; I25.10 Atherosclerotic heart disease of native coronary artery without angina pectoris; I10 Essential (primary) hypertension; F17.210 Nicotine dependence, cigarettes, uncomplicated; F03.90 Unspecified dementia, unspecified severity, without behavioral disturbance, psychotic disturbance, mood disturbance, and anxiety; G89.29 Other chronic pain; M54.9 Dorsalgia, unspecified; E11.9 Type 2 diabetes mellitus without complications; E78.5 Hyperlipidemia, unspecified; N40.0 Benign prostatic hyperplasia without lower urinary tract symptoms; R53.81 Other malaise; R53.1 Weakness; Z79.82 Long term (current) use of aspirin; Z79.899 Other long term (current) drug therapy; Z95.1 Presence of aortocoronary bypass graft
CPT/HCPCS: 36415; 51702; 71045; 80048; 80053; 81000; 82947; 83605; 83880; 84145; 84484; 85025; 85027; 85379; 85610; 85730; 86141; 87040; 87088; 87636; 93005; 94640; 94664

== ENCOUNTER 2020-09-13 09:14 | Inpatient (IN) | payer MEDICARE ==
[~2020-09-13] VITALS: Ht 182 cm; Wt 78.3 kg
[~2020-09-13 09:14] MED LIST changes: +ACET-93 PO; +ACET500P24 PO; +ATOR20TA66 PO; +CEFP250T2 PO; +CLOP75TA28 PO; +EZET10TA49 PO; +FINA5TAB PO; +FOSI40TA5 PO; +GUAI600T43 PO; +ISOS60TA63 PO; +LORA-404 PO; +NAPR220T66 PO; +NITR0.4T39 SL; +NITR0.4T42 PO; +OMEG-109 PO
[2020-09-14] MEDS ORDERED: ACETAMINOPHEN 325 MG TABLET PO PRN (13:00)
[2020-09-14] MEDS ORDERED: guaiFENesin SYRUP 100 MG/5 ML 10 ML (ROBITUSSIN SF) PO PRN (13:00)
[2020-09-14] MEDS ORDERED: ONDANSETRON 4 MG/2 ML (SDV) Z0FRAN IV PRN (13:00)
[2020-09-14] MEDS ORDERED: ACETAMINOPHEN 650 MG SUPP (TYLENOL) PR PRN (13:00)
[2020-09-14] MEDS ORDERED: ONDANSETRON 4 MG (ZOFRAN) ORAL DISSOLVE TAB PO PRN (13:00)
--- NOTE | 2020-09-14 14:50 | Physical Therapy Evaluation ---
PT Evaluation-General Medical Diagnosis Admission Date Sep 14, 2020 at 13:16 Medical Diagnosis: Covid Onset Date: Sep 08, 2020 Therapy Diagnosis Therapy Diagnosis: generalized weakness/debility Height/Weight Height (Feet): 6 Height (Inches): 0 Weight (Pounds): 215 Weight (Ounces): 0.0 Precautions Precautions/Isolations: Airborne Isolation, Fall Prevention Referral Physician: Efraín Reason for Referral: Evaluation/Treatment Medical History Pertinent Medical History: CABG, CAD, DM, Dementia, HTN Additional Medical History Pt reports he uses a walker sometimes at home. According to physician history patient had limited mobility at home and his was considering skilled placement. He has had multiple falls in the past few months. Current History SWB status to improve strength and mobility Reviewed History: Yes Social History Home: Single Level Current Living Status: Spouse Prior Prior Level of Function SCALE: Activities may be completed with or without assistive devices. 3-Pzeigmxwsu-sktijhj completes the activity by him/herself with no assistance from a helper. 5-Set-up or Clean-up Assistance-helper sets up or cleans up; patient completes activity. [place] assists only prior to or following the activity. 4-Supervision or Touching Assistance-helper provides verbal cues and/or touching/steadying and/or contact guard assistance as patient completes activity. Assistance may be provided throughout the activity or intermittently. 3-Partial/Moderate Assistance-helper does LESS THAN HALF the effort. [place] lifts, holds or supports trunk or limbs, but provides less than half the effort. 2-Substantial/Maximal Assistance-helper does MORE THAN HALF the effort. [place] lifts or holds trunk or limbs and provides more than half the effort. 3-Dogcwqlim-mcjbko does ALL the effort. Patient does none of the effort to complete the activity. Or, the assistance of 2 or more helpers is required for the patient to complete the activity. If activity was not attempted, code reason: 7-Patient Refused. 9-Not Applicable-not attempted and the patient did not perform the activity before the current illness, exacerbation or injury. 10-Not Attempted due to Environmental Limitations-(lack of equipment, weather restraints, etc.). 88-Not Attempted due to Medical Conditions or Safety Concerns. Bed Mobility: 5 Transfers (B,C,W/C): 5 Gait: 5 Indoor Mobility (Ambulation): Needed Some Help Prior Devices Use: Walker limited mobility/multiple falls PT Evaluation-Current Subjective Patient is very confused and has difficulty with following simple direction. Objective Patient Orientation: Confused Attachments: Colostomy/Ileostomy, [place] Catheter ROM/Strength ROM Lower Extremities bilateral LE WFL Strength Lower Extremities 3-/5 grossly bilateral LE (unable to follow simple direction) Integumentary/Posture Bowel Incontinence: Yes Bladder Incontinence: Yes Posture kyphotic Neuromuscular (Tone, Coordination, Reflexes) diminished coordination Sensory Vision: Functional Hearing: Hearing Aid/Aides Transfers Roll Left & Right (QC): 1 (x 2) Sit to Lying (QC): 1 (x 2) Lying to Sitting/Side of Bed(Q: 1 (x 2) Sit to Stand (QC): 1 (x 2) Chair/Tbu-rg-Tuwkp Xfer(QC): 88 Toilet Transfer (QC): 88 Car Transfer (QC): 88 Gait Does the Patient Walk?: No and Walking Goal IS indicated Mode of Locomotion: Both Anticipated Mode of Locomotion: Both Walk 10 feet (QC): 88 Walk 50 ft with 2 Turns(QC): 88 Walk 150 ft (QC): 88 Walking 10ft/uneven surface-QC: 88 Distance: 5 side steps Gait Assistive Device: FWW Comments/Gait Description unsafe to ambulate 10'/retropulsive Wheelchair Training Wheel 50 ft with 2 turns (QC): 88 Wheel 150 ft (QC): 88 Stairs 1 Step (curb) (QC): 9 4 Steps (QC): 9 12 Steps (QC): 9 Balance Sitting Static: Fair Sitting Dynamic: Fair Standing Static: Poor Standing Dynamic: Poor Picking up an Object (QC): 88 Treatment PT/OT cotreat due to complexity of treatment. Patient is dependent of 2 with all mobility for patient and staff safety. PT address sitting and standing balance with OT address hand placement on FWW and eating. Assessment/Needs Impaired strength, mobility with increase confusion, severely [place], difficulty with communication with PPE in donned Rehab Potential: Guarded PT Valve Liner Rubber Goals Group Home Goals PT Group Home Goals Time Frame: Sep 30, 2020 Roll Left & Right (QC): 3 Sit to Lying (QC): 3 Lying-Sitting on Side/Bed(QC): 3 Sit to Stand (QC): 3 Chair/Xsn-pc-Sdbxg Xfer(QC): 3 Toilet Transfer (QC): 3 Car Transfer (QC): 3 Does the Patient Walk: Yes Walk 10 feet (QC): 3 Walk 50ft with 2 Turns (QC): 3 Walk 150 ft (QC): 88 Walking 10ft on Uneven Surface: 88 1 Step (curb) (QC): 88 4 Steps (QC): 88 12 Steps (QC): 88 Picking up an Object (QC): 88 Wheel 50 feet with 2 turns (QC: 88 Wheel 150 feet: 88 PT Plan Problem List Problem List: Activity Tolerance, Functional Strength, Safety, Balance, Gait, Transfer, Bed Mobility Treatment/Plan Treatment Plan: Continue Plan of Care Treatment Plan: Bed Mobility, Education, Functional Activity Olivia, Functional Strength, Gait, Safety, Therapeutic Exercise, Transfers Treatment Duration: Sep 30, 2020 Frequency: 6 times per week Estimated Hrs Per Day: .25 hour per day Discharge Recommendations Therapy Discharge Recommendati: Other, See Comments ([facility] facility due to inability to care for self) Time/GCodes Time In: 1300 Time Out: 1331 Total Billed Treatment Time: 23 Total Billed Treatment 1 visit EVModC 8 min ([id number]) OT eval ([id number]) FA cotreat with OT ([id number]) GRANT CATHERINE PT Sep 14, 2020 14:50
[2020-09-14] MEDS: LORazepam INJ 2 MG/ML (ATIVAN) VIAL IVP PRN (15:24)
[2020-09-14] MEDS: ENOXAPARIN 40 MG/0.4 ML (LOVENOX) SYR SC SCH (15:24)
--- NOTE | 2020-09-14 15:36 | Occupational Therapy Eval ---
OT Evaluation-General/PLF Medical Diagnosis Admission Date Sep 14, 2020 at 13:16 Medical Diagnosis: Covid Onset Date: Sep 08, 2020 Therapy Diagnosis Therapy Diagnosis: Weakness, Decreased ADL skills Height/Weight Height (Feet): 6 Height (Inches): 0 Weight (Pounds): 215 Weight (Ounces): 0.0 Precautions Precautions/Isolations: Airborne Isolation, Fall Prevention Weight Bear Status Weight Bearing Restriction: Weight Bearing/Tolerated Referral Physician: Efraín Referral Reason: Activity Tolerance, Self Care, Evaluation/Treatment, Strengthening/ROM Medical History Pertinent Medical History: CABG, CAD, DM, Dementia, HTN Additional Medical History Chronic bowel, [place], Right TKA Reviewed History: Yes Social History Home: Single Level Current Living Status: Spouse ADL-Prior Level of Function SCALE: Activities may be completed with or without assistive devices. 6-Sztvtwdidb-wytyacm completes the activity by him/herself with no assistance from a helper. 5-Set-up or Clean-up Assistance-helper sets up or cleans up; patient completes activity. [place] assists only prior to or following the activity. 4-Supervision or Touching Assistance-helper provides verbal cues and/or touching/steadying and/or contact guard assistance as patient completes activity. Assistance may be provided throughout the activity or intermittently. 3-Partial/Moderate Assistance-helper does LESS THAN HALF the effort. [place] lifts, holds or supports trunk or limbs, but provides less than half the effort. 2-Substantial/Maximal Assistance-helper does MORE THAN HALF the effort. [place] lifts or holds trunk or limbs and provides more than half the effort. 7-Muhfnsgii-lskcbg does ALL the effort. Patient does none of the effort to complete the activity. Or, the assistance of 2 or more helpers is required for the patient to complete the activity. If activity was not attempted, code reason: 7-Patient Refused. 9-Not Applicable-not attempted and the patient did not perform the activity before the current illness, exacerbation or injury. 10-Not Attempted due to Environmental Limitations-(lack of equipment, weather restraints, etc.). 88-Not Attempted due to Medical Conditions or Safety Concerns. ADL PLOF Comments Pt. is very [place] and inconsistent with answers. Poor historian. On previous evaluation, pt. did verbalize that he received assistance with all ADL skills. It is not known what pt's baseline status fully is. Self Care: Unknown Functional Cognition: Unknown OT Current Status Subjective Pt. confused throughout treatment. Agitated at times. Tearful as well. More alert and talkative this date than yesterday. No pain reported. Mental Status/Objective Patient Orientation: Confused Attachments: [place] Catheter ADL-Treatment Eating (QC): 2 Oral Hygiene (QC): 88 Shower/Bathe Self (QC): 88 Upper Body Dressing (QC): 88 Lower Body Dressing (QC): 88 On/Off Footwear (QC): 1 Toileting Hygiene (QC): 1 Other Treatments Pt. in bed. OT/PT completed partial co-treatment due to need of skilled assistance x 2. Pt. required max x 2 for supine-sit. Max x 2 sit-stand at walker. Attempted to facilitate skilled stand but pt. confused and requires continued cues. Max x 2 for sit-supine and positioning. PT leaves room and OT attempts to facilitate pt. feeding self. Pt. will not hold onto cup or utensil, but will take bites when utensil is placed in his mouth. Pt. is tearful throughout treatment and non-sensical at times. Requires constant cues to stay on task and continue eating. Pt. confused and brings up other things in his life that don't make sense to current situation. At end of session, pt. positioned and all needs met. Bed alarm set. Education OT Patient Education: Correct positioning, Modified ADL techniques, Progress toward Goal/Update tx plan, Purpose of tx/functional activities, Reviewed precautions, Rehab process, Transfer techniques OT Short Term Goals Short Term Goals Time Frame: Sep 28, 2020 Eatin Upper body dressin Putting on/taking off footwear: 3 OT Manager Air Goals Manager Air Goals Time Frame: Oct 12, 2020 Eating (QC): 5 Oral Hygiene (QC): 4 Toileting Hygiene (QC): 3 Shower/Bathe Self (QC): 3 Upper Body Dressing (QC): 5 Lower Body Dressing (QC): 4 On/Off Footwear (QC): 4 Additional Goals: 1-Demonstrate ADL Tasks, 2-Verbalize Understanding, 3- ImproveStrength/Olivia 1=Demonstrate adherence to instructed precautions during ADL tasks. 2=Patient will verbalize/demonstrate understanding of assistive devices/modifications for ADL. 3=Patient will improve strength/tolerance for activity to enable patient to perform ADL's. OT Education/Plan Problem List/Assessment Assessment: Decreased Activ Tolerance, Dependent Transfers, Impaired Bed Mobility, Impaired Funct Balance, Impaired I ADL's, Impaired Self-Care Skills Discharge Recommendations Plan/Recommendations: Continue POC Therapy Discharge Recommendati: 24 Hour Supervision, Post Acute OT Treatment Plan/Plan of Care Treatment,Training & Education: Yes Patient would benefit from OT for education, treatment and training to promote independence in ADL's, mobility, safety and/or upper extremity function for ADL's. Plan of Care: ADL Retraining, Functional Mobility, UE Funct Exercise/Act Treatment Duration: Oct 12, 2020 Frequency: 5 times per week Estimated Hrs Per Day: .5 hour per day Agreement: Yes Rehab Potential: Guarded Time/GCodes Start Time: 13:00 Stop Time: 13:48 Total Time Billed (hr/min): 40 Billed Treatment Time 1722-0115 PT eval only- No charge [id number] 1, EVH x 8minutes [id number]- FA x 15minutes- Co-treatment with PT [id number] ADL x 17minutes JAMES FIERRO OT Sep 14, 2020 15:36
[2020-09-14 17:18] VITALS: BP 166/86
[2020-09-14] MEDS: LORazepam 0.5 MG (ATIVAN) TABLET PO SCH (21:09)
[2020-09-15] MEDS: LORazepam INJ 2 MG/ML (ATIVAN) VIAL IVP PRN ×4 (00:30→23:21)
[2020-09-15 08:00] VITALS: BP_SYST 112; BP_SYST 225; BP_DIAS 63; BP_DIAS 95
[2020-09-15] MEDS: amLODIPine 10 MG (NORVASC) TAB PO SCH (08:26)
[2020-09-15] MEDS: CLOPIDOGREL 75 MG (PLAVIX) TABLET PO SCH (08:26)
[2020-09-15] MEDS: FINASTERIDE (PROSCAR) 5 MG TAB PO SCH (08:26)
[2020-09-15] MEDS: ATENOLOL 25 MG (TENORMIN) TAB PO SCH (08:26)
[2020-09-15] MEDS: PANTOPRAZOLE 20 MG TABLET (PROTONIX) PO SCH (08:26)
[2020-09-15] MEDS: LORazepam 0.5 MG (ATIVAN) TABLET PO SCH ×2 (08:26→20:35)
[2020-09-15] MEDS: lisINopril 40 MG (PRINIVIL) TABLET PO SCH (08:26)
[2020-09-15] MEDS: ISOSORBIDE MONONITRATE 60 MG (IMDUR) TAB PO SCH (08:26)
--- NOTE | 2020-09-15 11:21 | Physical Therapy Daily Note ---
PT Daily Note-Current Subjective Patient moaning Mental Status Patient Orientation: Listless Transfers SCALE: Activities may be completed with or without assistive devices. 7-Pzwpfvefxk-cubqxpe completes the activity by him/herself with no assistance from a helper. 5-Set-up or Clean-up Assistance-helper sets up or cleans up; patient completes activity. [place] assists only prior to or following the activity. 4-Supervision or Touching Assistance-helper provides verbal cues and/or touching/steadying and/or contact guard assistance as patient completes activity. Assistance may be provided throughout the activity or intermittently. 3-Partial/Moderate Assistance-helper does LESS THAN HALF the effort. [place] lifts, holds or supports trunk or limbs, but provides less than half the effort. 2-Substantial/Maximal Assistance-helper does MORE THAN HALF the effort. [place] lifts or holds trunk or limbs and provides more than half the effort. 3-Rffzrtxse-yguuou does ALL the effort. Patient does none of the effort to complete the activity. Or, the assistance of 2 or more helpers is required for the patient to complete the activity. If activity was not attempted, code reason: 7-Patient Refused. 9-Not Applicable-not attempted and the patient did not perform the activity before the current illness, exacerbation or injury. 10-Not Attempted due to Environmental Limitations-(lack of equipment, weather restraints, etc.). 88-Not Attempted due to Medical Conditions or Safety Concerns. Exercises Supine Ex: Ankle pumps, Heel Slides, Straight leg raise, Hip abd/add Supine Reps: 12 (bilaterally PROM) Assessment Patient sedated due to agitation (refer to nursing notes). PROM bilateral LE only. PT Fci Goals Fci Goals PT Blasting Contract Man Goals Time Frame: Sep 30, 2020 Roll Left & Right (QC): 3 Sit to Lying (QC): 3 Lying-Sitting on Side/Bed(QC): 3 Sit to Stand (QC): 3 Chair/Txa-ia-Tcfis Xfer(QC): 3 Toilet Transfer (QC): 3 Car Transfer (QC): 3 Does the Patient Walk: Yes Walk 10 feet (QC): 3 Walk 50ft with 2 Turns (QC): 3 Walk 150 ft (QC): 88 Walking 10ft on Uneven Surface: 88 1 Step (curb) (QC): 88 4 Steps (QC): 88 12 Steps (QC): 88 Picking up an Object (QC): 88 Wheel 50 feet with 2 turns (QC: 88 Wheel 150 feet: 88 PT Plan Treatment/Plan Treatment Plan: Continue Plan of Care Treatment Plan: Bed Mobility, Education, Functional Activity Olivia, Functional Strength, Gait, Safety, Therapeutic Exercise, Transfers Treatment Duration: Sep 30, 2020 Frequency: 6 times per week Estimated Hrs Per Day: .25 hour per day Time/GCodes Time In: 1045 Time Out: 1100 Total Billed Treatment Time: 15 Total Billed Treatment 1 visit EX 15 min GRANT CATHERINE PT Sep 15, 2020 11:21
--- NOTE | 2020-09-15 13:44 | Occupational Ther Daily Note ---
OT Current Status-Daily Note Subjective Pt moaning throughout session, sedated due to agitation per nursing staff. Mental Status/Objective Patient Orientation: [place], Listless ADL-Treatment Therapy Code Descriptions/Definitions Functional [place] Measure: 0=Not Assessed/NA 4=Minimal Assistance 1=Total Assistance 5=Supervision or Setup 2=Maximal Assistance 6=Modified [place] 3=Moderate Assistance 7=Complete IndependenceSCALE: Activities may be completed with or without assistive devices. 8-Fevbeisjas-showwcf completes the activity by him/herself with no assistance from a helper. 5-Set-up or Clean-up Assistance-helper sets up or cleans up; patient completes activity. [place] assists only prior to or following the activity. 4-Supervision or Touching Assistance-helper provides verbal cues and/or touching/steadying and/or contact guard assistance as patient completes activity. Assistance may be provided throughout the activity or intermittently. 3-Partial/Moderate Assistance-helper does LESS THAN HALF the effort. [place] lifts, holds or supports trunk or limbs, but provides less than half the effort. 2-Substantial/Maximal Assistance-helper does MORE THAN HALF the effort. [place] lifts or holds trunk or limbs and provides more than half the effort. 0-Fniecudxo-gsjvkz does ALL the effort. Patient does none of the effort to complete the activity. Or, the assistance of 2 or more helpers is required for the patient to complete the activity. If activity was not attempted, code reason: 7-Patient Refused. 9-Not Applicable-not attempted and the patient did not perform the activity before the current illness, exacerbation or injury. 10-Not Attempted due to Environmental Limitations-(lack of equipment, weather restraints, etc.). 88-Not Attempted due to Medical Conditions or Safety Concerns. Eating (QC): 88 Oral Hygiene (QC): 88 Shower/Bathe Self (QC): 88 Upper Body Dressing (QC): 88 Lower Body Dressing (QC): 88 On/Off Footwear: 88 Toileting Hygiene (QC): 88 Toilet Transfer (QC): 88 Other Treatment Pt laying in bed, did not open his eyes during session. OT encouraged pt to perform UE exercises, but unable to follow commands, and unable to perform AAROM. OT performed PROM x10 reps each for the following LUE: shoulder flexion, elbow flexion/extension, wrist flexion/extension, and finger flexion/extension. OT attempted to perform PROM to R side, same movements, but after a few reps of each exercise, pt became more agitated and resistive with movements. OT and nurse positioned pt to comfort with pillows. Post tx, tp laying in bed, call light in reach and all needs met. Education OT Patient Education: Correct positioning, Energy conservation, Exercise program, Modified ADL techniques, Progress toward Goal/Update tx plan, Purpose of tx/functional activities, Rehab process Teaching Recipient: Patient Response to Teaching: Reinforcement Needed OT Short Term Goals Short Term Goals Time Frame: Sep 28, 2020 Eatin Upper body dressin Putting on/taking off footwear: 3 OT Fdc Goals Instructional Manager Goals Time Frame: Oct 12, 2020 Eating (QC): 5 Oral Hygiene (QC): 4 Toileting Hygiene (QC): 3 Shower/Bathe Self (QC): 3 Upper Body Dressing (QC): 5 Lower Body Dressing (QC): 4 On/Off Footwear (QC): 4 Additional Goals: 1-Demonstrate ADL Tasks, 2-Verbalize Understanding, 3- ImproveStrength/Olivia 1=Demonstrate adherence to instructed precautions during ADL tasks. 2=Patient will verbalize/demonstrate understanding of assistive devices/modifications for ADL. 3=Patient will improve strength/tolerance for activity to enable patient to perform ADL's. OT Education/Plan Problem List/Assessment Assessment: Decreased Activ Tolerance, Decreased Safety Aware, Decreased UE Strength, Dependent Transfers, Impaired Bed Mobility, Impaired Cognition, Impaired Coordination, Impaired Funct Balance, Impaired I ADL's, Impaired Self- Care Skills, Restricted Funct UE ROM Discharge Recommendations Plan/Recommendations: Continue POC Treatment Plan/Plan of Care Patient would benefit from OT for education, treatment and training to promote independence in ADL's, mobility, safety and/or upper extremity function for ADL's. Plan of Care: ADL Retraining, Functional Mobility, UE Funct Exercise/Act Treatment Duration: Oct 12, 2020 Frequency: 5 times per week Estimated Hrs Per Day: .5 hour per day Agreement: Yes Rehab Potential: Guarded Time/GCodes Start Time: 11:30 Stop Time: 11:45 Total Time Billed (hr/min): 15 Billed Treatment Time 1, EX ANNIKA KELLER OT Sep 15, 2020 13:44
--- NOTE | 2020-09-15 16:22 | Progress Note - Hospitalist ---
Subjective HPI/CC On Admission Date Seen by Provider: Sep 15, 2020 Time Seen by Provider: 11:00 Subjective/Events-last exam pt laying in bed. No complaints. Just finished working with PT. Had ativan earlier as well and somewhat drowsy. Objective Exam Vital Signs Vital Signs Date Time Temp Pulse Resp B/P (MAP) Pulse Ox O2 Delivery O2 Flow Rate FiO2 09/15/20 09:00 Room Air 09/15/20 08:00 36.2 80 22 225/95 (138) 91 Capillary Refill : General Appearance: No Apparent Distress, Chronically ill Respiratory: Lungs Clear, No Respiratory Distress Cardiovascular: Regular Rate, Rhythm, No Murmur Neurologic/Psychiatric: Alert (but drowsy) Results/Procedures Lab Patient resulted labs reviewed. Assessment/Plan Assessment and Plan Assess & Plan/Chief Complaint COVID Debility No indicated antiviral or decadron as is not hypoxic Received monocloncal antibody infusion 09/11 PT/OT on swing bed status Will likely still need placement after this HTN BP somewhat labile Continue home meds with addition on amlodipine Hydralazine prn CAD HLD NIDDMII No acute needs but clinically significant Continue home meds DVt ppx: IVANA Perry MD Sep 15, 2020 16:22
[2020-09-15] MEDS: ENOXAPARIN 40 MG/0.4 ML (LOVENOX) SYR SC SCH (18:42)
[2020-09-15 20:07] VITALS: BP 179/73
[2020-09-15] MEDS ORDERED: MILK OF MAGNESIA 400 MG/5 ML 30 ML UDC PO PRN (20:45)
[2020-09-15] MEDS ORDERED: MELATONIN 3 MG TABLET PO PRN (20:45)
[2020-09-15] MEDS ORDERED: BENZONATATE 100 MG (TESSALON) CAPSULE PO PRN (20:45)
[2020-09-15] MEDS ORDERED: ANTACID SUSP 30 ML UDC (MYLANTA) PO PRN (20:45)
[2020-09-15] MEDS: inSUlin ASPART (NovoLOG) 1 UNIT/0.01 ML (CHARGE PER UNIT) SC SCH (22:44)
[2020-09-16] MEDS: LORazepam INJ 2 MG/ML (ATIVAN) VIAL IVP PRN ×4 (03:47→22:51)
[2020-09-16 05:22] LABS: HEMATOCRIT 43 % (40-54); HEMOGLOBIN 13.8 g/dL (13.3-17.7); MEAN CORPUSCULAR HEMOGLOBIN 30 pg (25-34); MEAN CORPUSCULAR HGB CONC 32 g/dL (32-36); MEAN CORPUSCULAR VOLUME 95 fL (80-99); MEAN PLATELET VOLUME 10.5 fL (9.0-12.2); PLATELET COUNT 276 10^3/uL (130-400); WHITE BLOOD COUNT 18.8 10^3/uL (4.3-11.0)
[2020-09-16 05:37] LABS: CHLORIDE 106 MMOL/L (98-107); POTASSIUM 4.1 MMOL/L (3.6-5.0)
[2020-09-16 05:38] LABS: SODIUM 146 MMOL/L (135-145)
[2020-09-16 05:39] LABS: GLUCOSE 189 MG/DL (70-105)
[2020-09-16 05:41] LABS: CARBON DIOXIDE 27 MMOL/L (21-32)
[2020-09-16 05:43] LABS: CREATININE SERUM 1.09 MG/DL (0.60-1.30); GFR ESTIMATED > 60
[2020-09-16 05:44] LABS: BUN/CREATININE RATIO 34
[2020-09-16] MEDS: inSUlin ASPART (NovoLOG) 1 UNIT/0.01 ML (CHARGE PER UNIT) SC SCH ×4 (06:07→21:38)
[2020-09-16 08:29] VITALS: BP 171/75
[2020-09-16] MEDS: amLODIPine 10 MG (NORVASC) TAB PO SCH (09:00)
[2020-09-16] MEDS: PANTOPRAZOLE 20 MG TABLET (PROTONIX) PO SCH (09:00)
[2020-09-16] MEDS: lisINopril 40 MG (PRINIVIL) TABLET PO SCH (09:00)
[2020-09-16] MEDS: CLOPIDOGREL 75 MG (PLAVIX) TABLET PO SCH (09:00)
[2020-09-16] MEDS: ATENOLOL 25 MG (TENORMIN) TAB PO SCH (09:00)
[2020-09-16] MEDS: FINASTERIDE (PROSCAR) 5 MG TAB PO SCH (09:00)
[2020-09-16] MEDS: ISOSORBIDE MONONITRATE 60 MG (IMDUR) TAB PO SCH (09:00)
[2020-09-16] MEDS: LORazepam 0.5 MG (ATIVAN) TABLET PO SCH ×2 (09:00→21:44)
[2020-09-16] MEDS: hydrALAZINE (APESOLINE) 20 MG/ML VIAL IV PRN (10:00)
--- NOTE | 2020-09-16 12:52 | Physical Therapy Daily Note ---
PT Daily Note-Current Subjective Pt moaning in bed upon arrival to room, eyes closed. Pt does not open eyes when called by name; however, he does stop moaning for brief period of time. Appearance Pt wearing hand mittens to prevent him from pulling at [place] cath. Following session, pt repositioned in bed, bed alarm activated and call light and tray within reach. Mental Status Patient Orientation: Listless Attachments: [place] Catheter Transfers SCALE: Activities may be completed with or without assistive devices. 2-Oqyhzhtwff-dcxzrrs completes the activity by him/herself with no assistance from a helper. 5-Set-up or Clean-up Assistance-helper sets up or cleans up; patient completes activity. [place] assists only prior to or following the activity. 4-Supervision or Touching Assistance-helper provides verbal cues and/or touching/steadying and/or contact guard assistance as patient completes activity. Assistance may be provided throughout the activity or intermittently. 3-Partial/Moderate Assistance-helper does LESS THAN HALF the effort. [place] lifts, holds or supports trunk or limbs, but provides less than half the effort. 2-Substantial/Maximal Assistance-helper does MORE THAN HALF the effort. [place] lifts or holds trunk or limbs and provides more than half the effort. 5-Yftwcifrb-dpjcry does ALL the effort. Patient does none of the effort to complete the activity. Or, the assistance of 2 or more helpers is required for the patient to complete the activity. If activity was not attempted, code reason: 7-Patient Refused. 9-Not Applicable-not attempted and the patient did not perform the activity before the current illness, exacerbation or injury. 10-Not Attempted due to Environmental Limitations-(lack of equipment, weather restraints, etc.). 88-Not Attempted due to Medical Conditions or Safety Concerns. Exercises Supine Ex: Ankle pumps, Heel Slides, Straight leg raise, Hip abd/add Supine Reps: 15 (BLE PROM) Treatments Pt unable to follow cues this date, PROM of BLE preformed. Pt frequently kicks at PT and flailing arms throughout session. Assessment Current Status: Poor Progress Pt unable to following verbal or tactile cueing this date, PROM of BLE preformed. Will continue to monitor. PT Mcc Goals Mcc Goals PT Mcc Goals Time Frame: Sep 30, 2020 Roll Left & Right (QC): 3 Sit to Lying (QC): 3 Lying-Sitting on Side/Bed(QC): 3 Sit to Stand (QC): 3 Chair/Wrc-zd-Xkuqd Xfer(QC): 3 Toilet Transfer (QC): 3 Car Transfer (QC): 3 Does the Patient Walk: Yes Walk 10 feet (QC): 3 Walk 50ft with 2 Turns (QC): 3 Walk 150 ft (QC): 88 Walking 10ft on Uneven Surface: 88 1 Step (curb) (QC): 88 4 Steps (QC): 88 12 Steps (QC): 88 Picking up an Object (QC): 88 Wheel 50 feet with 2 turns (QC: 88 Wheel 150 feet: 88 PT Plan Problem List Problem List: Activity Tolerance, Functional Strength, Safety, Balance, Gait, Transfer, Bed Mobility, ROM Treatment/Plan Treatment Plan: Continue Plan of Care Treatment Plan: Bed Mobility, Education, Functional Activity Olivia, Functional Strength, Gait, Safety, Therapeutic Exercise, Transfers Treatment Duration: Sep 30, 2020 Frequency: 6 times per week Estimated Hrs Per Day: .25 hour per day Time/GCodes Time In: 1143 Time Out: 1200 Total Billed Treatment Time: 15 Total Billed Treatment 1 visit EX (15') PATY VARGHESE PT Sep 16, 2020 12:52
[2020-09-16] MEDS: ENOXAPARIN 40 MG/0.4 ML (LOVENOX) SYR SC SCH (16:41)
[2020-09-16 19:10] VITALS: BP 168/83
[2020-09-17] MEDS: LORazepam INJ 2 MG/ML (ATIVAN) VIAL IVP PRN ×2 (03:14→21:59)
[2020-09-17] MEDS: inSUlin ASPART (NovoLOG) 1 UNIT/0.01 ML (CHARGE PER UNIT) SC SCH ×4 (05:02→21:59)
[2020-09-17 08:36] VITALS: BP 133/84
[2020-09-17] MEDS: FINASTERIDE (PROSCAR) 5 MG TAB PO SCH (09:00)
[2020-09-17] MEDS: CLOPIDOGREL 75 MG (PLAVIX) TABLET PO SCH (09:00)
[2020-09-17] MEDS: lisINopril 40 MG (PRINIVIL) TABLET PO SCH (09:00)
[2020-09-17] MEDS: amLODIPine 10 MG (NORVASC) TAB PO SCH (09:00)
[2020-09-17] MEDS: ISOSORBIDE MONONITRATE 60 MG (IMDUR) TAB PO SCH (09:00)
[2020-09-17] MEDS: ATENOLOL 25 MG (TENORMIN) TAB PO SCH (09:00)
[2020-09-17] MEDS: LORazepam 0.5 MG (ATIVAN) TABLET PO SCH ×2 (09:00→22:00)
[2020-09-17] MEDS: PANTOPRAZOLE 20 MG TABLET (PROTONIX) PO SCH (09:00)
[2020-09-17] MEDS: ENOXAPARIN 40 MG/0.4 ML (LOVENOX) SYR SC SCH (17:11)
[2020-09-17 20:52] VITALS: BP 159/82
[2020-09-18] MEDS: inSUlin ASPART (NovoLOG) 1 UNIT/0.01 ML (CHARGE PER UNIT) SC SCH ×4 (05:34→21:00)
[2020-09-18 08:00] VITALS: BP 188/97
[2020-09-18 08:21] LABS: BASOPHILS % (AUTO) 0 % (0-10); EOSINOPHILS # (AUTO) 0.1 10^3/uL (0.0-0.3); EOSINOPHILS % (AUTO) 0 % (0-10); HEMATOCRIT 47 % (40-54); LYMPHOCYTES # (AUTO) 2.2 10^3/uL (1.0-4.0); LYMPHOCYTES % (AUTO) 15 % (12-44); MEAN CORPUSCULAR HEMOGLOBIN 31 pg (25-34); MEAN CORPUSCULAR HGB CONC 32 g/dL (32-36); MEAN CORPUSCULAR VOLUME 96 fL (80-99); MEAN PLATELET VOLUME 11.1 fL (9.0-12.2); MONOCYTES # (AUTO) 1.8 10^3/uL (0.0-1.0); MONOCYTES % (AUTO) 12 % (0-12); NEUTROPHILS # (AUTO) 10.8 10^3/uL (1.8-7.8); NEUTROPHILS % (AUTO) 71 % (42-75); PLATELET COUNT 308 10^3/uL (130-400); WHITE BLOOD COUNT 15.3 10^3/uL (4.3-11.0)
[2020-09-18 08:41] LABS: BUN/CREATININE RATIO 33; CARBON DIOXIDE 24 MMOL/L (21-32); CHLORIDE 112 MMOL/L (98-107); CREATININE SERUM 1.13 MG/DL (0.60-1.30); GFR ESTIMATED > 60; GLUCOSE 167 MG/DL (70-105); SODIUM 148 MMOL/L (135-145)
[2020-09-18 08:59] LABS: BAND NEUTROPHILS 13 %; EOSINOPHILS % (MANUAL) 0 %; LYMPHOCYTES % (MANUAL) 13 %; MONOCYTES % (MANUAL) 1 %; NEUTROPHILS % (MANUAL) 73 %; RBC MORPH NORMAL
[2020-09-18] MEDS: amLODIPine 10 MG (NORVASC) TAB PO SCH (09:00)
[2020-09-18] MEDS: ISOSORBIDE MONONITRATE 60 MG (IMDUR) TAB PO SCH (09:00)
[2020-09-18] MEDS: FINASTERIDE (PROSCAR) 5 MG TAB PO SCH (09:00)
[2020-09-18] MEDS: ATENOLOL 25 MG (TENORMIN) TAB PO SCH (09:00)
[2020-09-18] MEDS: lisINopril 40 MG (PRINIVIL) TABLET PO SCH (09:00)
[2020-09-18] MEDS: CLOPIDOGREL 75 MG (PLAVIX) TABLET PO SCH (09:00)
[2020-09-18] MEDS: PANTOPRAZOLE 20 MG TABLET (PROTONIX) PO SCH (09:00)
[2020-09-18] MEDS: LORazepam 0.5 MG (ATIVAN) TABLET PO SCH ×2 (09:00→20:40)
--- NOTE | 2020-09-18 11:46 | Occupational Ther Daily Note ---
OT Current Status-Daily Note Subjective Pt laying in bed, nonverbal throughout tx. Opened eyes with ADLs, and mumbles. Mental Status/Objective Patient Orientation: Non-Verbal/Aphasic, Eyes Open, [place], Listless ADL-Treatment Therapy Code Descriptions/Definitions Functional [place] Measure: 0=Not Assessed/NA 4=Minimal Assistance 1=Total Assistance 5=Supervision or Setup 2=Maximal Assistance 6=Modified [place] 3=Moderate Assistance 7=Complete IndependenceSCALE: Activities may be completed with or without assistive devices. 7-Kgkzrfekqq-ronorfv completes the activity by him/herself with no assistance from a helper. 5-Set-up or Clean-up Assistance-helper sets up or cleans up; patient completes activity. [place] assists only prior to or following the activity. 4-Supervision or Touching Assistance-helper provides verbal cues and/or touching/steadying and/or contact guard assistance as patient completes activity. Assistance may be provided throughout the activity or intermittently. 3-Partial/Moderate Assistance-helper does LESS THAN HALF the effort. [place] lifts, holds or supports trunk or limbs, but provides less than half the effort. 2-Substantial/Maximal Assistance-helper does MORE THAN HALF the effort. [place] lifts or holds trunk or limbs and provides more than half the effort. 7-Mzwrpyfgg-grstsv does ALL the effort. Patient does none of the effort to complete the activity. Or, the assistance of 2 or more helpers is required for the patient to complete the activity. If activity was not attempted, code reason: 7-Patient Refused. 9-Not Applicable-not attempted and the patient did not perform the activity before the current illness, exacerbation or injury. 10-Not Attempted due to Environmental Limitations-(lack of equipment, weather restraints, etc.). 88-Not Attempted due to Medical Conditions or Safety Concerns. Eating (QC): 88 Oral Hygiene (QC): 1 (assist with oral care using foam swab) Shower/Bathe Self (QC): 1 (Total assist sponge bath) Upper Body Dressing (QC): 1 (based on [place] judgement, total assist) Lower Body Dressing (QC): 1 (based on [place] judgement, total assist) On/Off Footwear: 1 (total assist with gripper socks.) Toileting Hygiene (QC): 1 (based on [place] judgement, total assist with task.) Toilet Transfer (QC): 88 Other Treatment Pt laying in bed, OT performed dependent sponge bath. OT assisted with providing pt oral care and face washing (Dependent). OT performed PROM BUE shoulder motions and elbow motions. Post tx, pt laying in bed, call light in reach and all needs met. Education OT Patient Education: Correct positioning, Modified ADL techniques, Progress toward Goal/Update tx plan, Purpose of tx/functional activities, Rehab process Teaching Recipient: Patient Response to Teaching: Reinforcement Needed OT Short Term Goals Short Term Goals Time Frame: Sep 28, 2020 Eatin Upper body dressin Putting on/taking off footwear: 3 OT Design [facility] Consultant Goals [place] Goals Time Frame: Oct 12, 2020 Eating (QC): 5 Oral Hygiene (QC): 4 Toileting Hygiene (QC): 3 Shower/Bathe Self (QC): 3 Upper Body Dressing (QC): 5 Lower Body Dressing (QC): 4 On/Off Footwear (QC): 4 Additional Goals: 1-Demonstrate ADL Tasks, 2-Verbalize Understanding, 3- ImproveStrength/Olivia 1=Demonstrate adherence to instructed precautions during ADL tasks. 2=Patient will verbalize/demonstrate understanding of assistive devices/modifications for ADL. 3=Patient will improve strength/tolerance for activity to enable patient to perform ADL's. OT Education/Plan Problem List/Assessment Assessment: Decreased Activ Tolerance, Decreased Safety Aware, Decreased UE Strength, Impaired Bed Mobility, Impaired Cognition, Impaired Funct Balance, Impaired I ADL's, Impaired Self-Care Skills, Restricted Funct UE ROM Discharge Recommendations Plan/Recommendations: Continue POC Treatment Plan/Plan of Care Patient would benefit from OT for education, treatment and training to promote independence in ADL's, mobility, safety and/or upper extremity function for ADL's. Plan of Care: ADL Retraining, Functional Mobility, UE Funct Exercise/Act Treatment Duration: Oct 12, 2020 Frequency: 5 times per week Estimated Hrs Per Day: .5 hour per day Agreement: Yes Rehab Potential: Guarded Time/GCodes Start Time: 10:35 Stop Time: 10:50 Total Time Billed (hr/min): 15 Billed Treatment Time 1, ADL ANNIKA KELLER OT Sep 18, 2020 11:46
--- NOTE | 2020-09-18 14:02 | Physical Therapy Daily Note ---
PT Daily Note-Current Subjective Patient in bed pre tx, during tx he opens his eyes a few times but the majority of the time keeps them closed. He doesn't verbally communicate during tx. Doesn't follow directions. Appearance Patient in bed post tx with nurse call, phone, tray, all needs met, bed alarm on. Mental Status Patient Orientation: Confused, Unable to Assess, Non-Verbal/Aphasic Attachments: Colostomy/Ileostomy Transfers SCALE: Activities may be completed with or without assistive devices. 1-Kfovwahent-hzdmtbf completes the activity by him/herself with no assistance from a helper. 5-Set-up or Clean-up Assistance-helper sets up or cleans up; patient completes activity. [place] assists only prior to or following the activity. 4-Supervision or Touching Assistance-helper provides verbal cues and/or touching/steadying and/or contact guard assistance as patient completes activity. Assistance may be provided throughout the activity or intermittently. 3-Partial/Moderate Assistance-helper does LESS THAN HALF the effort. [place] lifts, holds or supports trunk or limbs, but provides less than half the effort. 2-Substantial/Maximal Assistance-helper does MORE THAN HALF the effort. [place] lifts or holds trunk or limbs and provides more than half the effort. 9-Bqfccaofc-krkfyl does ALL the effort. Patient does none of the effort to complete the activity. Or, the assistance of 2 or more helpers is required for the patient to complete the activity. If activity was not attempted, code reason: 7-Patient Refused. 9-Not Applicable-not attempted and the patient did not perform the activity before the current illness, exacerbation or injury. 10-Not Attempted due to Environmental Limitations-(lack of equipment, weather restraints, etc.). 88-Not Attempted due to Medical Conditions or Safety Concerns. Exercises BLE PROM all planes. Treatments PROM Assessment Current Status: Poor Progress Patient encouraged but he doesn't participate in ROM, sometimes he resists the ROM. PT Commercial Relationship Manager Goals Group Home Goals PT Group Home Goals Time Frame: Sep 30, 2020 Roll Left & Right (QC): 3 Sit to Lying (QC): 3 Lying-Sitting on Side/Bed(QC): 3 Sit to Stand (QC): 3 Chair/Fdm-bn-Nidwy Xfer(QC): 3 Toilet Transfer (QC): 3 Car Transfer (QC): 3 Does the Patient Walk: Yes Walk 10 feet (QC): 3 Walk 50ft with 2 Turns (QC): 3 Walk 150 ft (QC): 88 Walking 10ft on Uneven Surface: 88 1 Step (curb) (QC): 88 4 Steps (QC): 88 12 Steps (QC): 88 Picking up an Object (QC): 88 Wheel 50 feet with 2 turns (QC: 88 Wheel 150 feet: 88 PT Plan Problem List Problem List: Activity Tolerance, Functional Strength, Safety, Balance, Gait, Transfer, Bed Mobility, ROM Treatment/Plan Treatment Plan: Continue Plan of Care Treatment Plan: Bed Mobility, Education, Functional Activity Olivia, Functional Strength, Gait, Safety, Therapeutic Exercise, Transfers Treatment Duration: Sep 30, 2020 Frequency: 6 times per week Estimated Hrs Per Day: .25 hour per day Safety Risks/Education Patient Education: Correct Positioning, Safety Issues Teaching Recipient: Patient Teaching Methods: Demonstration, Discussion Response to Teaching: Reinforcement Needed Time/GCodes Time In: 1333 Time Out: 1348 Total Billed Treatment Time: 11 Total Billed Treatment 1 visit EX 15' VIK LOZANO PT Sep 18, 2020 14:02
--- NOTE | 2020-09-18 14:41 | Progress Note - Hospitalist ---
Subjective HPI/CC On Admission Date Seen by Provider: Sep 18, 2020 Time Seen by Provider: 10:00 Subjective/Events-last exam He is sleeping. He is difficult to arouse. He is not communicating. Objective Exam Vital Signs Vital Signs Date Time Temp Pulse Resp B/P (MAP) Pulse Ox O2 Delivery O2 Flow Rate FiO2 09/18/20 09:00 Room Air 09/18/20 08:00 36.6 98 20 188/97 (127) 97 Capillary Refill : General Appearance: No Apparent Distress, Chronically ill, Other (Uncooperative, noncommunicative) Respiratory: No Respiratory Distress, Decreased Breath Sounds Cardiovascular: Regular Rate, Rhythm, No Edema, No Murmur Gastrointestinal: Normal Bowel Sounds, Soft Extremity: Normal Inspection, Pedal Edema Neurologic/Psychiatric: Other (Lethargic, noncommunicative, uncooperative) Skin: Cool, Pallor Results/Procedures Lab Laboratory Tests 09/18/20 08:15 Patient resulted labs reviewed. Assessment/Plan Assessment and Plan Assess & Plan/Chief Complaint COVID-19 HTN CAD HLD T2DM Dementia Debility Advanced age Poor prognosis s/p monocloncal antibody infusion 09/11 PT/OT on swing bed status Worsening clinical status planning to visit tomorrow, she is currently in isolation at home Palliative care consulted, appreciate assistance Discontinue isolation DVt prophylaxis: Lovenox Diagnosis/Problems Diagnosis/Problems (1) COVID-19 virus infection Status: Acute (2) Debility Status: Acute (3) Dementia Status: Chronic (4) Advanced age Status: Chronic (5) Poor prognosis Status: Acute (6) Weakness Status: Acute (7) Essential (primary) hypertension Status: Chronic (8) HLD (hyperlipidemia) Status: Chronic (9) Non-insulin dependent type 2 diabetes mellitus Status: Chronic BEN GRESHAM MD Sep 18, 2020 14:41
[2020-09-18 16:54] VITALS: BP 121/76
[2020-09-18] MEDS: ENOXAPARIN 40 MG/0.4 ML (LOVENOX) SYR SC SCH (16:58)
[2020-09-18 19:10] VITALS: BP 175/95
[2020-09-18] MEDS: hydrALAZINE (APESOLINE) 20 MG/ML VIAL IV PRN (20:40)
[2020-09-19] MEDS: inSUlin ASPART (NovoLOG) 1 UNIT/0.01 ML (CHARGE PER UNIT) SC SCH ×4 (06:44→21:19)
[2020-09-19 08:00] VITALS: BP 170/85
[2020-09-19] MEDS: CLOPIDOGREL 75 MG (PLAVIX) TABLET PO SCH (09:20)
[2020-09-19] MEDS: ISOSORBIDE MONONITRATE 60 MG (IMDUR) TAB PO SCH (09:20)
[2020-09-19] MEDS: LORazepam 0.5 MG (ATIVAN) TABLET PO SCH ×3 (09:20→21:25)
[2020-09-19] MEDS: PANTOPRAZOLE 20 MG TABLET (PROTONIX) PO SCH (09:20)
[2020-09-19] MEDS: lisINopril 40 MG (PRINIVIL) TABLET PO SCH (09:20)
[2020-09-19] MEDS: FINASTERIDE (PROSCAR) 5 MG TAB PO SCH (09:20)
[2020-09-19] MEDS: amLODIPine 10 MG (NORVASC) TAB PO SCH (09:20)
[2020-09-19] MEDS: ATENOLOL 25 MG (TENORMIN) TAB PO SCH (09:20)
[2020-09-19] MEDS ORDERED: RT-ALBUTEROL INHALER HFA (VENTOLIN HFA) 18 GM IH PRN (10:15)
--- NOTE | 2020-09-19 11:47 | Physical Therapy Daily Note ---
PT Daily Note-Current Subjective Patient in bed pre tx, has eyes open part of the time during tx but doesn't actively participate. Patient has some BM on his sheets and needs to get them changed. Nurse aide assists. Appearance Patient in bed post tx with nurse call, phone, tray, bed alarm on. Mental Status Patient Orientation: Confused, Unable to Assess, Non-Verbal/Aphasic Transfers SCALE: Activities may be completed with or without assistive devices. 5-Uhigzwrnkg-boyrqfm completes the activity by him/herself with no assistance from a helper. 5-Set-up or Clean-up Assistance-helper sets up or cleans up; patient completes activity. [place] assists only prior to or following the activity. 4-Supervision or Touching Assistance-helper provides verbal cues and/or touching/steadying and/or contact guard assistance as patient completes activity. Assistance may be provided throughout the activity or intermittently. 3-Partial/Moderate Assistance-helper does LESS THAN HALF the effort. [place] lifts, holds or supports trunk or limbs, but provides less than half the effort. 2-Substantial/Maximal Assistance-helper does MORE THAN HALF the effort. [place] lifts or holds trunk or limbs and provides more than half the effort. 8-Akddmruyi-vpafje does ALL the effort. Patient does none of the effort to complete the activity. Or, the assistance of 2 or more helpers is required for the patient to complete the activity. If activity was not attempted, code reason: 7-Patient Refused. 9-Not Applicable-not attempted and the patient did not perform the activity before the current illness, exacerbation or injury. 10-Not Attempted due to Environmental Limitations-(lack of equipment, weather restraints, etc.). 88-Not Attempted due to Medical Conditions or Safety Concerns. Roll Left & Right (QC): 1 Patient rolled from side to side to change sheets and for cleaning, patient didn't participate, moaned with the movement. Exercises BLE PROM in all planes, patient would not assist with movement Treatments rolling, LE PROM Assessment Current Status: Poor Progress no participation from patient PT [facility] Goals [facility] Goals PT Clinical Case Manager Goals Time Frame: Sep 30, 2020 Roll Left & Right (QC): 3 Sit to Lying (QC): 3 Lying-Sitting on Side/Bed(QC): 3 Sit to Stand (QC): 3 Chair/Ssb-wf-Ymlzp Xfer(QC): 3 Toilet Transfer (QC): 3 Car Transfer (QC): 3 Does the Patient Walk: Yes Walk 10 feet (QC): 3 Walk 50ft with 2 Turns (QC): 3 Walk 150 ft (QC): 88 Walking 10ft on Uneven Surface: 88 1 Step (curb) (QC): 88 4 Steps (QC): 88 12 Steps (QC): 88 Picking up an Object (QC): 88 Wheel 50 feet with 2 turns (QC: 88 Wheel 150 feet: 88 PT Plan Problem List Problem List: Activity Tolerance, Functional Strength, Safety, Balance, Gait, Transfer, Bed Mobility, ROM Treatment/Plan Treatment Plan: Continue Plan of Care Treatment Plan: Bed Mobility, Education, Functional Activity Olivia, Functional Strength, Gait, Safety, Therapeutic Exercise, Transfers Treatment Duration: Sep 30, 2020 Frequency: 6 times per week Estimated Hrs Per Day: .25 hour per day Safety Risks/Education Patient Education: Correct Positioning, Safety Issues Teaching Recipient: Patient Teaching Methods: Demonstration, Discussion Response to Teaching: Reinforcement Needed Time/GCodes Time In: 1109 Time Out: 1124 Total Billed Treatment Time: 15 Total Billed Treatment 1 visit FA 15' VIK LOZANO PT Sep 19, 2020 11:47
--- NOTE | 2020-09-19 11:55 | Occupational Ther Daily Note ---
OT Current Status-Daily Note Subjective Patient in bed, has eyes open during tx, but does not actively participate. Nurse aide present to assist with changing soiled linen Mental Status/Objective Patient Orientation: Confused, Unable to Assess, Non-Verbal/Aphasic ADL-Treatment Therapy Code Descriptions/Definitions Functional [place] Measure: 0=Not Assessed/NA 4=Minimal Assistance 1=Total Assistance 5=Supervision or Setup 2=Maximal Assistance 6=Modified [place] 3=Moderate Assistance 7=Complete IndependenceSCALE: Activities may be completed with or without assistive devices. 4-Myzwjzfarx-arlbnuw completes the activity by him/herself with no assistance from a helper. 5-Set-up or Clean-up Assistance-helper sets up or cleans up; patient completes activity. [place] assists only prior to or following the activity. 4-Supervision or Touching Assistance-helper provides verbal cues and/or touching/steadying and/or contact guard assistance as patient completes activity. Assistance may be provided throughout the activity or intermittently. 3-Partial/Moderate Assistance-helper does LESS THAN HALF the effort. [place] lifts, holds or supports trunk or limbs, but provides less than half the effort. 2-Substantial/Maximal Assistance-helper does MORE THAN HALF the effort. [place] lifts or holds trunk or limbs and provides more than half the effort. 1-Vqogvjjrq-hdjuwk does ALL the effort. Patient does none of the effort to complete the activity. Or, the assistance of 2 or more helpers is required for the patient to complete the activity. If activity was not attempted, code reason: 7-Patient Refused. 9-Not Applicable-not attempted and the patient did not perform the activity before the current illness, exacerbation or injury. 10-Not Attempted due to Environmental Limitations-(lack of equipment, weather restraints, etc.). 88-Not Attempted due to Medical Conditions or Safety Concerns. Toileting Hygiene (QC): 1 (total assist) Other Treatment OT/PT cotreat due to skill of 2 clincians required which a rehabilitation construction specialist could not perform in order to coordinate UE/LEs, and due to pt's limitations in mobility, transfers, strength, activity tolerance, and due to lethargic state. OT focused on ADLs, assist with bed mobility, and UE, PT focused on LE placement, gross overall movement, and bed mobility. Pt rolled side to side in order for linens to be changed, and for pt's buttocks/side of back to be washed. OT then performed UE PROM shoulder and elbow all motions. OT washed pt's underarms and stomach around ostomy bag. Post tx, pt laying in bed, call light in reach all needs met. Bed alarm activated. Education OT Patient Education: Correct positioning, Exercise program, Modified ADL techniques, Progress toward Goal/Update tx plan, Purpose of tx/functional activities, Rehab process Teaching Recipient: Patient Response to Teaching: Unable to Return Demonstration, Unable to Comprehend OT Short Term Goals Short Term Goals Time Frame: Sep 28, 2020 Eatin Upper body dressin Putting on/taking off footwear: 3 OT Longterm Goals Financial Planning Consultant Goals Time Frame: Oct 12, 2020 Eating (QC): 5 Oral Hygiene (QC): 4 Toileting Hygiene (QC): 3 Shower/Bathe Self (QC): 3 Upper Body Dressing (QC): 5 Lower Body Dressing (QC): 4 On/Off Footwear (QC): 4 Additional Goals: 1-Demonstrate ADL Tasks, 2-Verbalize Understanding, 3- ImproveStrength/Olivia 1=Demonstrate adherence to instructed precautions during ADL tasks. 2=Patient will verbalize/demonstrate understanding of assistive devices/modifications for ADL. 3=Patient will improve strength/tolerance for activity to enable patient to perform ADL's. OT Education/Plan Problem List/Assessment Assessment: Decreased Activ Tolerance, Decreased Safety Aware, Decreased UE Strength, Dependent Transfers, Impaired Bed Mobility, Impaired Cognition, Impaired Coordination, Impaired Funct Balance, Impaired I ADL's, Impaired Self- Care Skills Discharge Recommendations Plan/Recommendations: Continue POC Treatment Plan/Plan of Care Patient would benefit from OT for education, treatment and training to promote independence in ADL's, mobility, safety and/or upper extremity function for ADL's. Plan of Care: ADL Retraining, Functional Mobility, UE Funct Exercise/Act Treatment Duration: Oct 12, 2020 Frequency: 5 times per week Estimated Hrs Per Day: .5 hour per day Agreement: Yes Rehab Potential: Guarded Time/GCodes Start Time: 11:09 Stop Time: 11:24 Total Time Billed (hr/min): 15 Billed Treatment Time 1, EX ANNIKA KELLER OT Sep 19, 2020 11:55
--- NOTE | 2020-09-19 12:55 | Progress Note - Hospitalist ---
Subjective HPI/CC On Admission Date Seen by Provider: Sep 19, 2020 Time Seen by Provider: 10:10 Subjective/Events-last exam He is more awake and alert today. He says "water". I provided water for him but he appeared to be too weak to use the straw. He shakes his head no when I asked about pain. Objective Exam Vital Signs Vital Signs Date Time Temp Pulse Resp B/P (MAP) Pulse Ox O2 Delivery O2 Flow Rate FiO2 09/19/20 10:16 Room Air 0.00 09/19/20 08:00 36.3 104 20 170/85 (113) 97 Capillary Refill : General Appearance: No Apparent Distress, Chronically ill Respiratory: No Respiratory Distress, Decreased Breath Sounds Cardiovascular: Regular Rate, Rhythm, No Murmur Gastrointestinal: Normal Bowel Sounds, Non Tender, Soft Extremity: Normal Inspection, Non Tender, Pedal Edema Neurologic/Psychiatric: Alert, Depressed Affect, Disoriented Skin: Normal Color, Warm/Dry Results/Procedures Lab Patient resulted labs reviewed. Imaging: Reviewed Imaging Report Assessment/Plan Assessment and Plan Assess & Plan/Chief Complaint COVID-19 HTN CAD HLD T2DM Dementia Debility Advanced age Poor prognosis s/p monocloncal antibody infusion 09/11 PT/OT on swing bed status Palliative care consulted, appreciate assistance Isolation discontinued, approved by infection control planning to visit DVt prophylaxis: Lovenox Diagnosis/Problems Diagnosis/Problems (1) COVID-19 virus infection Status: Acute (2) Debility Status: Acute (3) Dementia Status: Chronic (4) Advanced age Status: Chronic (5) Poor prognosis Status: Acute (6) Weakness Status: Acute (7) Essential (primary) hypertension Status: Chronic (8) HLD (hyperlipidemia) Status: Chronic (9) Non-insulin dependent type 2 diabetes mellitus Status: Chronic BEN GRESHAM MD Sep 19, 2020 12:55
[2020-09-19] MEDS: ENOXAPARIN 40 MG/0.4 ML (LOVENOX) SYR SC SCH (14:36)
[2020-09-19] MEDS: LORazepam INJ 2 MG/ML (ATIVAN) VIAL IVP PRN ×2 (15:55→21:26)
[2020-09-19 20:00] VITALS: BP 176/81
[2020-09-20] MEDS: inSUlin ASPART (NovoLOG) 1 UNIT/0.01 ML (CHARGE PER UNIT) SC SCH ×2 (05:52→11:09)
[2020-09-20 08:22] VITALS: BP 140/73
[2020-09-20] MEDS ORDERED: risperiDONE 0.25 MG (RisperDAL) TAB PO SCH (09:00)
--- NOTE | 2020-09-20 09:52 | Progress Note - Hospitalist ---
Subjective HPI/CC On Admission Date Seen by Provider: Sep 20, 2020 Time Seen by Provider: 08:40 Subjective/Events-last exam He is awake and alert but uncooperative and not communicating. Objective Exam Vital Signs Vital Signs Date Time Temp Pulse Resp B/P (MAP) Pulse Ox O2 Delivery O2 Flow Rate FiO2 09/20/20 08:22 35.8 88 18 140/73 (95) 95 Room Air 09/19/20 10:16 0.00 Capillary Refill : General Appearance: No Apparent Distress, Chronically ill Respiratory: No Respiratory Distress, Crackles Cardiovascular: Regular Rate, Rhythm, No Edema, No Murmur Gastrointestinal: Normal Bowel Sounds, Non Tender, Soft Extremity: Normal Inspection, Pedal Edema Neurologic/Psychiatric: Alert, Depressed Affect, Disoriented Skin: Normal Color, Warm/Dry Results/Procedures Lab Patient resulted labs reviewed. Imaging: Reviewed Imaging Report Assessment/Plan Assessment and Plan Assess & Plan/Chief Complaint Dementia Debility Advanced age Poor prognosis HTN CAD HLD T2DM s/p monocloncal antibody infusion 09/11 PT/OT on swing bed status Hold PRN Ativan, assess response Palliative care consulted, appreciate assistance Discussing plan of care with today DVt prophylaxis: Lovenox COVID-19, resolved Diagnosis/Problems Diagnosis/Problems (1) COVID-19 virus infection Status: Resolved Resolution Date/Time: 09/20/20 @ 09:51 (2) Debility Status: Acute (3) Dementia Status: Acute Qualifiers: Dementia type: Alzheimer's Alzheimer's disease onset: late-onset Dementia behavioral disturbance: with behavioral disturbance Qualified Codes: G30.1 - Alzheimer's disease with late onset; F02.81 - Dementia in other diseases classified elsewhere with behavioral disturbance (4) Advanced age Status: Chronic (5) Poor prognosis Status: Acute (6) Weakness Status: Acute (7) Essential (primary) hypertension Status: Chronic (8) HLD (hyperlipidemia) Status: Chronic (9) Non-insulin dependent type 2 diabetes mellitus Status: Chronic BEN GRESHAM MD Sep 20, 2020 09:52
[2020-09-20] MEDS ORDERED: LORazepam ORAL CONCENTRATE 2 MG/ML 30 ML (ATIVAN) PO NR (10:15)
--- NOTE | 2020-09-20 10:26 | Physical Therapy Daily Note ---
PT Daily Note-Current Subjective Patient in bed pre tx, unresponsive, has eyes open most of the time but stares ahead blankly, he does moan and breathe raggedly. Appearance Patient in bed post tx with nurse call, phone, tray, all needs met, bed alarm on. Mental Status Patient Orientation: Unable to Assess Attachments: Colostomy/Ileostomy, [place] Catheter Transfers SCALE: Activities may be completed with or without assistive devices. 2-Igwgrpnjcp-sbuyabk completes the activity by him/herself with no assistance from a helper. 5-Set-up or Clean-up Assistance-helper sets up or cleans up; patient completes activity. [place] assists only prior to or following the activity. 4-Supervision or Touching Assistance-helper provides verbal cues and/or touching/steadying and/or contact guard assistance as patient completes activity. Assistance may be provided throughout the activity or intermittently. 3-Partial/Moderate Assistance-helper does LESS THAN HALF the effort. [place] lifts, holds or supports trunk or limbs, but provides less than half the effort. 2-Substantial/Maximal Assistance-helper does MORE THAN HALF the effort. [place] lifts or holds trunk or limbs and provides more than half the effort. 8-Dqgaluoph-odantm does ALL the effort. Patient does none of the effort to complete the activity. Or, the assistance of 2 or more helpers is required for the patient to complete the activity. If activity was not attempted, code reason: 7-Patient Refused. 9-Not Applicable-not attempted and the patient did not perform the activity before the current illness, exacerbation or injury. 10-Not Attempted due to Environmental Limitations-(lack of equipment, weather restraints, etc.). 88-Not Attempted due to Medical Conditions or Safety Concerns. Roll Left & Right (QC): 1 Sit to Lying (QC): 1 Lying to Sitting/Side of Bed(Q: 1 Dependent to sit on the side of the bed, patient sits for about 3-4 minutes before leaning heavily toward the bed like he wants to lay down. After laying down patient has to roll from side to side (dependent) to rearrage his pad and then pulled up in bed. Patient had eyes open when sitting but was still unresponsive. Exercises BLE PROM, patient resists movement occasionally Treatments sitting, LE PROM Assessment Current Status: Poor Progress unresponsive, no change in mobility PT Residential Goals Residential Goals PT Residential Goals Time Frame: Sep 30, 2020 Roll Left & Right (QC): 3 Sit to Lying (QC): 3 Lying-Sitting on Side/Bed(QC): 3 Sit to Stand (QC): 3 Chair/Cww-ic-Owhkt Xfer(QC): 3 Toilet Transfer (QC): 3 Car Transfer (QC): 3 Does the Patient Walk: Yes Walk 10 feet (QC): 3 Walk 50ft with 2 Turns (QC): 3 Walk 150 ft (QC): 88 Walking 10ft on Uneven Surface: 88 1 Step (curb) (QC): 88 4 Steps (QC): 88 12 Steps (QC): 88 Picking up an Object (QC): 88 Wheel 50 feet with 2 turns (QC: 88 Wheel 150 feet: 88 PT Plan Problem List Problem List: Activity Tolerance, Functional Strength, Safety, Balance, Gait, Transfer, Bed Mobility, ROM Treatment/Plan Treatment Plan: Continue Plan of Care Treatment Plan: Bed Mobility, Education, Functional Activity Olivia, Functional Strength, Gait, Safety, Therapeutic Exercise, Transfers Treatment Duration: Sep 30, 2020 Frequency: 6 times per week Estimated Hrs Per Day: .25 hour per day Safety Risks/Education Patient Education: Correct Positioning, Safety Issues Teaching Recipient: Patient Teaching Methods: Demonstration, Discussion Response to Teaching: Reinforcement Needed Time/GCodes Time In: 1002 Time Out: 1013 Total Billed Treatment Time: 11 Total Billed Treatment 1 visit FA 11' VIK LOZANO PT Sep 20, 2020 10:26
[2020-09-20] MEDS: LORazepam 0.5 MG (ATIVAN) TABLET PO SCH (11:06)
[2020-09-20] MEDS: ISOSORBIDE MONONITRATE 60 MG (IMDUR) TAB PO SCH (11:06)
[2020-09-20] MEDS: CLOPIDOGREL 75 MG (PLAVIX) TABLET PO SCH (11:07)
[2020-09-20] MEDS: amLODIPine 10 MG (NORVASC) TAB PO SCH (11:07)
[2020-09-20] MEDS: lisINopril 40 MG (PRINIVIL) TABLET PO SCH (11:08)
[2020-09-20] MEDS: PANTOPRAZOLE 20 MG TABLET (PROTONIX) PO SCH (11:08)
[2020-09-20] MEDS: FINASTERIDE (PROSCAR) 5 MG TAB PO SCH (11:08)
[2020-09-20] MEDS: ATENOLOL 25 MG (TENORMIN) TAB PO SCH (11:08)
--- NOTE | 2020-09-20 11:53 | Occupational Ther Daily Note ---
OT Current Status-Daily Note Subjective Pt laying in bed, eyes closed. Would briefly open his eyes during tx, but would not keep them open. Mental Status/Objective Patient Orientation: Non-Verbal/Aphasic, Listless ADL-Treatment Therapy Code Descriptions/Definitions Functional [place] Measure: 0=Not Assessed/NA 4=Minimal Assistance 1=Total Assistance 5=Supervision or Setup 2=Maximal Assistance 6=Modified [place] 3=Moderate Assistance 7=Complete IndependenceSCALE: Activities may be completed with or without assistive devices. 6-Cujhsmuwor-nfnicuf completes the activity by him/herself with no assistance from a helper. 5-Set-up or Clean-up Assistance-helper sets up or cleans up; patient completes activity. [place] assists only prior to or following the activity. 4-Supervision or Touching Assistance-helper provides verbal cues and/or touching/steadying and/or contact guard assistance as patient completes activity. Assistance may be provided throughout the activity or intermittently. 3-Partial/Moderate Assistance-helper does LESS THAN HALF the effort. [place] lifts, holds or supports trunk or limbs, but provides less than half the effort. 2-Substantial/Maximal Assistance-helper does MORE THAN HALF the effort. [place] lifts or holds trunk or limbs and provides more than half the effort. 3-Lnaizqgqb-crsnlj does ALL the effort. Patient does none of the effort to complete the activity. Or, the assistance of 2 or more helpers is required for the patient to complete the activity. If activity was not attempted, code reason: 7-Patient Refused. 9-Not Applicable-not attempted and the patient did not perform the activity before the current illness, exacerbation or injury. 10-Not Attempted due to Environmental Limitations-(lack of equipment, weather restraints, etc.). 88-Not Attempted due to Medical Conditions or Safety Concerns. Eating (QC): 7 (Per nursing report, pt will not take meds or eat.) Oral Hygiene (QC): 1 (total assist with oral swab) Shower/Bathe Self (QC): 1 (Total assist sponge bath.) Upper Body Dressing (QC): 1 (based on clincial judgement, total assist would be required) Lower Body Dressing (QC): 1 (based on clincial judgement, total assistance would be required to complete task.) On/Off Footwear: 1 (total assistance donning/doffing gripper socks.) Toileting Hygiene (QC): 1 (Catheter and ostomy, total assistance.) Toilet Transfer (QC): 88 (not attempted due to safety concern) Other Treatment Pt laying in bed, did not actively participate in tx. OT provided pt with sponge bath, total assistance. OT attempted to perform PROM to BUEs, all planes, but pt resistive towards movements. Pt moaned and pulled arms back towards bed when OT performed PROM. Post tx, pt laying in bed, call light in reach and all needs met, nurse aware of pt's position. Education OT Patient Education: Correct positioning, Modified ADL techniques, Progress toward Goal/Update tx plan, Purpose of tx/functional activities Teaching Recipient: Patient Response to Teaching: Reinforcement Needed OT Short Term Goals Short Term Goals Time Frame: Sep 28, 2020 Eatin Upper body dressin Putting on/taking off footwear: 3 OT Long-Term Goals Long-Term Goals Time Frame: Oct 12, 2020 Eating (QC): 5 Oral Hygiene (QC): 4 Toileting Hygiene (QC): 3 Shower/Bathe Self (QC): 3 Upper Body Dressing (QC): 5 Lower Body Dressing (QC): 4 On/Off Footwear (QC): 4 Additional Goals: 1-Demonstrate ADL Tasks, 2-Verbalize Understanding, 3- ImproveStrength/Olivia 1=Demonstrate adherence to instructed precautions during ADL tasks. 2=Patient will verbalize/demonstrate understanding of assistive devices/modifications for ADL. 3=Patient will improve strength/tolerance for activity to enable patient to perform ADL's. OT Education/Plan Problem List/Assessment Assessment: Decreased Activ Tolerance, Decreased Safety Aware, Decreased UE Strength, Dependent Transfers, Impaired Bed Mobility, Impaired Cognition, Impaired Coordination, Impaired Funct Balance, Impaired I ADL's, Impaired Self- Care Skills, Restricted Funct UE ROM Discharge Recommendations Plan/Recommendations: Continue POC Treatment Plan/Plan of Care Patient would benefit from OT for education, treatment and training to promote independence in ADL's, mobility, safety and/or upper extremity function for ADL's. Plan of Care: ADL Retraining, Functional Mobility, UE Funct Exercise/Act Treatment Duration: Oct 12, 2020 Frequency: 5 times per week Estimated Hrs Per Day: .5 hour per day Agreement: Yes Rehab Potential: Guarded Time/GCodes Start Time: 11:10 Stop Time: 11:25 Total Time Billed (hr/min): 15 Billed Treatment Time 1, ADL ANNIKA KELLER OT Sep 20, 2020 11:53
[2020-09-20] MEDS ORDERED: BISACODYL 10 MG SUPP (DULCOLAX) PR PRN (13:15)
[2020-09-20] MEDS ORDERED: RT-ALBUTEROL/IPRATROPIUM 3 ML (DUONEB) VIAL INH PRN (13:15)
[2020-09-20] MEDS ORDERED: ACETAMINOPHEN 650 MG SUPP (TYLENOL) PR PRN (13:15)
[2020-09-20] MEDS ORDERED: ONDANSETRON 4 MG/2 ML (SDV) Z0FRAN IVP PRN (13:15)
[2020-09-20] MEDS ORDERED: PROMETHAZINE INJ 25 MG/ML (PHENERGAN) AMP IVP PRN (13:15)
[2020-09-20] MEDS ORDERED: ARTIFICAL TEARS 0.4 ML UNIT DOSE (REFRESH PLUS) OU PRN (13:15)
[2020-09-20] MEDS: morphine INJ 4 MG/ML 1 ML (VIAL/SYRINGE) IV PRN ×2 (13:53→17:28)
[2020-09-20] MEDS: SALIVA STIMULANT MOUTH SPRAY (BIOTENE) 1.5 OZ MM PRN (13:58)
--- NOTE | 2020-09-20 15:50 | Therapy Team Discharge Summary ---
Therapy Discharge Summary Discharge Recommendations Date of Discharge Physical Therapy Patient admitted with covid. Upon PT evaluation he was dependent for bed mobility, supine <-> sit, and standing. He has been performing sitting, LE exercises and ROM. Patient has not made any progress and has declined actually in strength and mobility. He has not met any of his jumpbasting lining baster goals. Patient is being put on comfort care and will be discharged from PT at this time. Occupational Therapy Decreased Activ Tolerance, Decreased Safety Aware, Decreased UE Strength, Dependent Transfers, Impaired Bed Mobility, Impaired Cognition, Impaired Coordination, Impaired Funct Balance, Impaired I ADL's, Impaired Self-Care Skills, Restricted Funct UE ROM PT Claims Investigator Goals Custodial Goals PT Custodial Goals Time Frame: Sep 30, 2020 Roll Left to Right (QC): 3 Sit to Lying (QC): 3 Lying-Sitting on Side/Bed(QC): 3 Sit to Stand (QC): 3 Chair/Xwh-dv-Gmdwz Xfer(QC): 3 Car Transfer (QC): 3 Does the Patient Walk: Yes Walk 10 feet (QC): 3 Walk 10ft-Uneven Surface(QC): 88 Walk 50ft with 2 Turns (QC): 3 Walk 150 ft (QC): 88 Wheel 50 feet with 2 turns (QC: 88 1 Step (curb) (QC): 88 4 Steps (QC): 88 12 Steps (QC): 88 Picking up an Object (QC): 88 OT Claims Investigator Goals Claims Investigator Goals Time Frame: Oct 12, 2020 Eating (QC): 5 Oral Hygiene (QC): 4 Shower/Bathe Self (QC): 3 Upper Body Dressing (QC): 5 Lower Body Dressing (QC): 4 On/Off Footwear (QC): 4 Toileting Hygiene (QC): 3 Toilet/Commode Transfer (QC): 3 Additional Goals: 1-Demonstrate ADL Tasks, 2-Verbalize Understanding, 3-Improve Strength/Olivia 1=Demonstrate adherence to instructed precautions during ADL tasks. 2=Patient will verbalize/demonstrate understanding of assistive devices/modifications for ADL. 3=Patient will improve strength/tolerance for activity to enable patient to pe rform ADL's. VIK LOZANO PT Sep 20, 2020 15:50
--- NOTE | 2020-09-20 15:55 | Therapy Team Discharge Summary ---
Therapy Discharge Summary Discharge Recommendations Date of Discharge Occupational Therapy Pt admitted to [facility] with COVID-19. At OF, pt required assistance with ADLs, but level of assistance unknown. At initial evaluation, pt required max A with eating, total assist footwear and toileting, other ADLs not complete due to safety concerns. OT txs focused on increasing safety and independence with ADLs, and UE ROM. At discharge, eating was not performed due to safety concern and pt refusal to eat/take medicines, he required total assistance with oral care, showering, UE/LE dressing, footwear and toileting. Pt made poor progress towards goals, and did not achieve any LTGs. Pt discharging to [facility] at this time due to decline in function, d/c from OT services. Decreased Activ Tolerance, Decreased Safety Aware, Decreased UE Strength, Dependent Transfers, Impaired Bed Mobility, Impaired Cognition, Impaired Coordination, Impaired Funct Balance, Impaired I ADL's, Impaired Self-Care Skills, Restricted Funct UE ROM PT Skilled Nursing Goals Strategy Execution Consultant Goals PT Skilled Nursing Goals Time Frame: Sep 30, 2020 Roll Left to Right (QC): 3 Sit to Lying (QC): 3 Lying-Sitting on Side/Bed(QC): 3 Sit to Stand (QC): 3 Chair/Sph-kt-Zfsej Xfer(QC): 3 Car Transfer (QC): 3 Does the Patient Walk: Yes Walk 10 feet (QC): 3 Walk 10ft-Uneven Surface(QC): 88 Walk 50ft with 2 Turns (QC): 3 Walk 150 ft (QC): 88 Wheel 50 feet with 2 turns (QC: 88 1 Step (curb) (QC): 88 4 Steps (QC): 88 12 Steps (QC): 88 Picking up an Object (QC): 88 OT Strategy Execution Consultant Goals Strategy Execution Consultant Goals Time Frame: Oct 12, 2020 Eating (QC): 5 (not met) Oral Hygiene (QC): 4 (not met) Shower/Bathe Self (QC): 3 (not met) Upper Body Dressing (QC): 5 (not met) Lower Body Dressing (QC): 4 (not met) On/Off Footwear (QC): 4 (not met) Toileting Hygiene (QC): 3 (not met) Toilet/Commode Transfer (QC): 3 (not met) Additional Goals: 1-Demonstrate ADL Tasks, 2-Verbalize Understanding, 3- ImproveStrength/Olivia 1=Demonstrate adherence to instructed precautions during ADL tasks. 2=Patient will verbalize/demonstrate understanding of assistive devices/modifications for ADL. 3=Patient will improve strength/tolerance for activity to enable patient to perform ADL's. ANNIKA KELLER OT Sep 20, 2020 15:55
[2020-09-20] MEDS: LORazepam INJ 2 MG/ML (ATIVAN) VIAL IVP PRN ×2 (16:09→18:21)
[2020-09-20] MEDS: GLYCOPYRROLATE 0.2 MG/ML (ROBINUL) 2 ML VIAL IV PRN (20:52)
[2020-09-20] MEDS ORDERED: LORazepam ORAL CONCENTRATE 2 MG/ML 30 ML (ATIVAN) PO SCH (21:00)
[2020-09-21] MEDS: GLYCOPYRROLATE 0.2 MG/ML (ROBINUL) 2 ML VIAL IV PRN ×2 (05:55→10:14)
[2020-09-21] MEDS: morphine INJ 4 MG/ML 1 ML (VIAL/SYRINGE) IV PRN (08:43)
[2020-09-21] MEDS: LORazepam INJ 2 MG/ML (ATIVAN) VIAL IVP PRN (09:26)
[2020-09-21] MEDS: SALIVA STIMULANT MOUTH SPRAY (BIOTENE) 1.5 OZ MM PRN (10:14)
--- NOTE | 2020-09-26 09:41 | Discharge Summary ---
Discharge Summary Hospital Course Was the Problem List Reviewed?: Yes Problems/Dx: (1) Acute hypoactive delirium due to multiple etiologies Status: Acute (2) Dementia Status: Acute Qualifiers: Qualified Codes: G30.1 - Alzheimer's disease with late onset; F02.81 - Dementia in other diseases classified elsewhere with behavioral disturbance (3) Debility Status: Acute (4) History of COVID-19 (5) Advanced age Status: Chronic (6) Poor prognosis Status: Acute (7) Weakness Status: Acute (8) Essential (primary) hypertension Status: Chronic (9) HLD (hyperlipidemia) Status: Chronic (10) Non-insulin dependent type 2 diabetes mellitus Status: Chronic Hospital Course Date of Admission: Sep 14, 2020 at 13:16 Admission Diagnosis : Debility Family Physician/Provider: Bin Zepeda DO Date of Discharge: 09/26/20 Discharge Diagnosis: Alzheimer's dementia, debility, COVID-19 Hospital Course: Jack Kaufman was an 85 year old male with PMH HTN, T2DM, CAD, Alheimer's dementia, debility, who was admitted to swing bed due to debility related to advanced dementia and recent hospitalization. His reported that his dementia has been progressing over recent months and he has required increasing levels of assistance with ADLs. He had also had multiple recent falls. He was then diagnosed with COVID and admitted to the hospital. He did not require oxygen during that stay. He did suffer from acute hypoactive delirium on chronic dementia. He was admitted to swing bed for ongoing therapies. He continued to worsen and his made the decision to transition him to comfort measures only. He subsequently on 09/21/2020 at 1110. Labs and Pending Lab Test: Home Meds Active Reported Nitroglycerin 0.4 Mg Tab.subl 0.4 Mg SL UD PRN Aleve (Naproxen Sodium) 220 Mg Tablet 440 Mg PO BID Mucinex (Guaifenesin) 600 Mg Tab.er.12h 600 Mg PO Q12H PRN Acetaminophen 500 Mg Tablet 1,000 Mg PO BID Fish Oil 1,200 mg Softgel ([place]-3 Fatty Acids/Fish Oil) 1 Each Capsule 1 Each PO DAILY Cefprozil 250 Mg Tablet 250 Mg PO BID FILLED 09-05-2020 #14/7 DAY SUPPLY Ezetimibe 10 Mg Tablet 10 Mg PO DAILY Atorvastatin Calcium 20 Mg Tablet 20 Mg PO DAILY Ativan (Lorazepam) 0.5 Mg Tablet 0.25 Mg PO BID TAKES OF A 0.5MG Clopidogrel (Clopidogrel Bisulfate) 75 Mg Tablet 75 Mg PO DAILY Fosinopril Sodium 40 Mg Tablet 40 Mg PO DAILY Isosorbide Mononitrate ER (Isosorbide Mononitrate) 60 Mg Tab 60 Mg PO DAILY Probiotic (L.acidoph & Paracasei,B.lactis) 1 Each Capsule 1 Cap PO DAILY Glimepiride 1 Mg Tablet 1 Mg PO DAILY Atenolol 25 Mg Tablet 25 Mg PO DAILY Omeprazole 20 Mg Capsule.dr 20 Mg PO DAILY Finasteride 5 Mg Tablet 5 Mg PO DAILY Assessment/Pt Instructions Patient Discharge Planning: <30 minutes discharge planning Discharge Physical Examination Vital Signs Vital Signs Date Time Temp Pulse Resp B/P (MAP) Pulse Ox O2 Delivery O2 Flow Rate FiO2 09/21/20 08:00 95 Room Air 09/20/20 08:22 35.8 88 18 140/73 (95) Allergies: Coded Allergies: NKANo Known Allergies (Verified Allergy, Unknown, 12/19/14) Copy Copies To 1: BIN ZEPEDA DO Discharge Summary Date of Admission Sep 14, 2020 at 13:16 Date of Discharge Sep 21, 2020 at 13:03 Discharge Date: Sep 21, 2020 Discharge Time: 11:10 Admission Diagnosis Debility Comfort Measures/ End of Life Care: Comfort Measures, Pallative Care Discharge Diagnosis Comfort measures only status Acute hypoactive delirium due to multiple etiologies Alzheimer's dementia Debility Recent COVID-19 infection (1) Acute hypoactive delirium due to multiple etiologies Status: Acute (2) Dementia Status: Acute Qualifiers: Qualified Codes: G30.1 - Alzheimer's disease with late onset; F02.81 - Dementia in other diseases classified elsewhere with behavioral disturbance (3) Debility Status: Acute (4) History of COVID-19 (5) Advanced age Status: Chronic (6) Poor prognosis Status: Acute (7) Weakness Status: Acute (8) Essential (primary) hypertension Status: Chronic (9) HLD (hyperlipidemia) Status: Chronic (10) Non-insulin dependent type 2 diabetes mellitus Status: Chronic BEN GRESHAM MD Sep 26, 2020 09:31
== END 2020-09-21 13:03 | disposition expired | DRG 948 ==
LOC: 4TH 09-14 13:16
PROVIDERS: ADMIT Family Medicine; ATTEND Internal Medicine
DX: R53.81 Other malaise (principal); F02.81 Dementia in other diseases classified elsewhere, unspecified severity, with behavioral disturbance; G30.1 Alzheimer's disease with late onset; R53.1 Weakness; I10 Essential (primary) hypertension; E78.5 Hyperlipidemia, unspecified; E11.9 Type 2 diabetes mellitus without complications; Z51.5 Encounter for palliative care; Z66 Do not resuscitate; I25.10 Atherosclerotic heart disease of native coronary artery without angina pectoris; Z86.16 Personal history of COVID-19; Z91.81 History of falling
CPT/HCPCS: 36415; 80048; 82947; 85007; 85027; 94760